=== PATIENT | male | born 1955 | race Caucasian/White ===

== ENCOUNTER 2019-04-24 15:41 | Emergency (ER) | payer OTHER ==
[2019-04-24 16:27] LABS: Absolute Lymphocytes (CBC) 1.9 K/uL (0.7-4.9); Basophils % 0.4 % (0-1.3); Lymphocytes % 14.3 % (15.3-44.8); RBC Red Blood Cell Count 2.64 M/uL (4.33-5.43)
[2019-04-24 16:32] LABS: Protime INR 1.22
[2019-04-24 16:40] LABS: Hematocrit 20.1 % (39.6-49.0)
[2019-04-24 17:00] LABS: Magnesium 2.3 mg/dL (1.8-2.4); Troponin (Emerg Dept Use Only) < 0.02 ng/mL (0.0-0.045)
[2019-04-24 17:03] LABS: ALT/SGPT 17 U/L (12-78); AST/SGOT 26 U/L (15-37); Alkaline Phosphatase 110 U/L (45-117); BUN Blood Urea Nitrogen 20 mg/dL (7-18); Bicarbonate 27 mmol/L (21-32); Bilirubin Direct < 0.1 mg/dL (0-0.2); Bilirubin Total 0.2 mg/dL (0.2-1.0); Glucose Level 125 mg/dL (74-106); NT PRO-BNP 606 pg/mL (<125); Potassium 3.9 mmol/L (3.5-5.1); Protein, Total 7.2 g/dL (6.4-8.2); Sodium Level 134 mmol/L (136-145)
--- NOTE | 2019-04-24 17:03 | RAD REPORT ---
EXAM DESCRIPTION: RAD - Chest Single View - 04/24/2019 4:42 pm CLINICAL HISTORY: Shortness of breath, history of lung cancer COMPARISON: None. TECHNIQUE: AP portable chest image was obtained 1626 hour . FINDINGS: There is complete opacification of the left hemithorax. Left hemidiaphragm elevation is pr esent. Patient gives a lung cancer history but no comparison or further detail available. Patient may be status post pneumonectomy with fluid filling the left pleural cavity. Mass, atelectasis, pleural effusion combination may be present as well. The right hemithorax is clear of mass, infiltrate or edema. Right-sided Port-A-Cath is in place. Heart is obscured by the left hemithorax opacification. Cardiomegaly is not suspected. No vascular e ngorgement on the right side. No right-sided pleural effusion. No pneumothorax. No acute bony abnorma lity seen. Aorta is obscured. IMPRESSION: Complete opacification of the left hemithorax without tracheal shift. This is probably p neumonectomy with pleural fluid filling the left hemithorax. No edema, infiltrate or acute right lung field finding.
[2019-04-24] MEDS ORDERED: ACETAMINOPHEN 325 MG TABLET ONE (21:01)
[2019-04-24] MEDS ORDERED: DIPHENHYDRAMINE 50 MG/ML VIAL ONE (21:01)
[2019-04-24] MEDS ORDERED: NA CHLORIDE 0.9% 250 ML ONE (21:10)
[2019-04-25] MEDS ORDERED: NA CHLORIDE 0.9% 250 ML ONE (00:03)
--- NOTE | 2019-04-25 02:14 | EDPHYS ---
Physician Documentation [facility] Name: Charly Olmedo Age: 63 yrs Sex: Male : 1955 Arrival Date: 04/24/2019 Time: 15:46 Bed 24 Private MD: ED Physician Nicolas Ramos HPI: 04/24 16:18 This 63 yrs old Male presents to ER via Wheelchair with complaints of pm1 Shortness Of Breath. 16:18 The patient has shortness of breath at rest. Onset: The symptoms/episode began/occurred pm1 chronic for multiple months, worse the past three days. Diagnosed with lung cancer 6 weeks ago. Duration: The symptoms are continuous, and are steadily getting worse. The patient's shortness of breath is aggravated by nothing, is alleviated by nothing. Associated signs and symptoms: Pertinent negatives: chest pain, fever. Severity of symptoms: in the emergency department the symptoms are worse. 6 weeks ago presented to ER in [place] and was diagnosed with lung cancer. Patient was also anemic at that time. The patient has not recently seen a physician, has an appointment scheduled, on Thursday with cancer doctors. Historical: - Allergies: 15:50 Corticosteroids (Glucocorticoids); la1 - PMHx: 15:50 lung CA; GERD; la1 - Immunization history:: Adult Immunizations up to date. - Social history:: Smoking status: unknown. - Ebola Screening: : No symptoms or risks identified at this time. ROS: 16:18 Constitutional: Negative for fever, chills, and weight loss, Eyes: Negative for injury, pm1 pain, redness, and discharge, ENT: Negative for injury, pain, and discharge, Neck: Negative for injury, pain, and swelling, Cardiovascular: Negative for chest pain, palpitations, and edema. 16:18 Abdomen/GI: Negative for abdominal pain, nausea, vomiting, diarrhea, and constipation, Back: Negative for injury and pain, : Negative for injury, bleeding, discharge, and swelling, MS/Extremity: Negative for injury and deformity, Skin: Negative for injury, rash, and discoloration, Neuro: Negative for headache, weakness, numbness, tingling, and seizure. 16:18 Respiratory: Positive for shortness of breath, Negative for wheezing. Exam: 16:18 Constitutional: This is a well developed, well nourished patient who is awake, alert, pm1 and in no acute distress. Head/Face: Normocephalic, atraumatic. Neck: Trachea midline, no thyromegaly or masses palpated, and no cervical lymphadenopathy. Supple, full range of motion without nuchal rigidity, or vertebral point tenderness. No Meningismus. Chest/axilla: Normal chest wall appearance and motion. Nontender with no deformity. No lesions are appreciated. Cardiovascular: Regular rate and rhythm with a normal S1 and S2. No gallops, murmurs, or rubs. Normal PMI, no JVD. No pulse deficits. 16:18 Abdomen/GI: Soft, non-tender, with normal bowel sounds. No distension or tympany. No guarding or rebound. No evidence of tenderness throughout. Back: No spinal tenderness. No costovertebral tenderness. Full range of motion. Skin: Warm, dry with normal turgor. Normal color with no rashes, no lesions, and no evidence of cellulitis. MS/ Extremity: Pulses equal, no cyanosis. Neurovascular intact. Full, normal range of motion. 16:18 Respiratory: the patient does not display signs of respiratory distress, Respirations: normal, Breath sounds: decreased breath sounds, are heard in the left posterior upper lobe. 16:18 Neuro: Orientation: is normal, Motor: is normal, moves all fours. Vital Signs: 15:50 BP 115 / 74; Pulse 103; Resp 16; Temp 98.8; Pulse Ox 96% ; Weight 46.72 kg; Height 5 la1 ft. 6 in. (167.64 cm); 17:37 BP 134 / 70; Pulse 94; Resp 28; Pulse Ox 100% on 3 lpm NC; mg2 18:01 BP 114 / 57; Pulse 91; Resp 24; Pulse Ox 99% on 3 lpm NC; mg2 19:07 Pulse 96; Resp 18; Pulse Ox 98% on R/A; mg2 19:07 BP 116 / 78; mg2 20:00 BP 133 / 65; Pulse 91; Resp 18; Temp 98.8; Pulse Ox 100% on R/A; mg2 21:00 BP 133 / 62; Pulse 96; Resp 18; Temp 98.9; Pulse Ox 100% on R/A; mg2 22:08 BP 133 / 62; Pulse 91; Resp 17; Temp 98.8; Pulse Ox 100% on R/A; mg2 22:57 BP 102 / 49; Pulse 89; Resp 18; Temp 98.8; Pulse Ox 100% on 3 lpm NC; mg2 04/25 00:00 BP 140 / 70; Pulse 89; Resp 18; Temp 98.9; Pulse Ox 100% 3 lpm ; ad1 01:28 BP 135 / 72; Pulse 82; Resp 23; Pulse Ox 100% 3 lpm ; ad1 02:08 BP 147 / 71; Pulse 83; Resp 24; Temp 98.3; Pulse Ox 100% 3 lpm ; ad1 04/24 15:50 Body Mass Index 16.62 (46.72 kg, 167.64 cm) la1 MDM: 04/24 15:58 Patient medically screened. pm1 18:30 ED course: Pending arrival of blood products. pm1 22:16 Refusal of service: The patient/guardian displays adequate decision making capability pm1 and despite a detailed discussion of alternatives, benefits, risks, and consequences refuses: CT Scan, Patient does not want CT scan of his chest in the ER. Patient wants to get them on a outpatient basis. He wants to see his cancer physicians for further evaluation and imaging because it [CT scan] should be on their schedule. He has an appointment with them this week. 04/25 02:10 Refusal of service: The patient/guardian displays adequate decision making capability pm1 and despite a detailed discussion of alternatives, benefits, risks, and consequences refuses: Patient would like to leave now. Does not want to wait for repeat labs - H\T\H post blood transfusion. 02:11 Data reviewed: vital signs. Data interpreted: Pulse oximetry: on room air is 100 %. pm1 Interpretation: normal. Counseling: I had a detailed discussion with the patient and/or guardian regarding: the historical points, exam findings, and any diagnostic results supporting the discharge/admit diagnosis, lab results, radiology results, the need for outpatient follow up, for definitive care, Oncology, to return to the emergency department if symptoms worsen or persist or if there are any questions or concerns that arise at home. 04/24 15:58 Order name: Basic Metabolic Panel; Complete Time: 17:06 pm1 04/24 22:16 Interpretation: Normal except: NA 134; GLUC 125; BUN 20. tw4 04/24 15:58 Order name: CBC with Diff; Complete Time: 16:43 pm1 04/24 15:58 Order name: LFT's; Complete Time: 17:06 pm1 04/24 15:58 Order name: Magnesium; Complete Time: 17:06 pm1 04/24 15:58 Order name: NT PRO-BNP; Complete Time: 17:06 pm1 04/24 15:58 Order name: PT-INR; Complete Time: 16:43 pm1 04/24 15:58 Order name: Troponin (emerg Dept Use Only); Complete Time: 17:06 pm1 04/24 22:16 Interpretation: Within normal limits: TROPED < 0.02. tw4 04/24 15:58 Order name: XRAY Chest (1 view); Complete Time: 17:06 pm1 04/24 16:06 Order name: Creatinine for Radiology; Complete Time: 17:06 pm1 04/24 16:43 Order name: TS mg2 04/24 19:24 Order name: ABO/RH no charge; Complete Time: 21:56 EDMS 04/24 20:09 Order name: Packed RBCs (Additional Unit) EDOK 04/24 15:58 Order name: EKG; Complete Time: 15:59 pm1 04/24 15:58 Order name: Cardiac monitoring; Complete Time: 16:18 pm1 04/24 15:58 Order name: EKG - Nurse/Tech; Complete Time: 16:18 pm1 04/24 15:58 Order name: IV Saline Lock; Complete Time: 16:18 pm1 04/24 15:58 Order name: Labs collected and sent; Complete Time: 16:18 pm1 04/24 15:58 Order name: O2 Per Protocol; Complete Time: 16:18 pm1 04/24 15:58 Order name: O2 Sat Monitoring; Complete Time: 16:18 pm1 04/24 16:40 Order name: Transfuse; Complete Time: 21:47 pm1 Administered Medications: 04/24 21:30 Drug: Benadryl 12.5 mg Route: IVP; Site: right forearm; mg2 21:47 Drug: Tylenol 650 mg Route: PO; mg2 Disposition: 04/25/19 02:13 Discharged to Home. Impression: Anemia, unspecified, Shortness of breath. - Condition is Stable. - Discharge Instructions: Anemia, Nonspecific, Blood Transfusion, Adult, Shortness of Breath. - Medication Reconciliation Form, Thank You Letter, Antibiotic Education, Prescription Opioid Use form. - Follow up: Emergency Department; When: As needed; Reason: Worsening of condition. Follow up: Private Physician; When: 2 - 3 days; Reason: Recheck today's complaints, Continuance of care, Re-evaluation by your physician. - Problem is new. - Symptoms have improved. Signatures: Dispatcher [employer] [facility] Reema Saavedra RN RN ad1 Rik Musa RN RN la1 Logan Mckinnon, ELECTROLOG OPERATOR ELECTROLOG OPERATOR pm1 Mehdi Aceves MD MD tw4 Azael Layton, RN RN mg2 Corrections: (The following items were deleted from the chart) 22:29 22:14 Chest For PE Angio+CT.RAD.BRZ ordered. [facility] 04/25 02:14 02:13 04/25/2019 02:13 Discharged to Home. Impression: Anemia, unspecified. Condition pm1 is Stable. Forms are Medication Reconciliation Form, Thank You Letter, Antibiotic Education, Prescription Opioid Use. Follow up: Emergency Department; When: As needed; Reason: Worsening of condition. Follow up: Private Physician; When: 2 - 3 days; Reason: Recheck today's complaints, Continuance of care, Re-evaluation by your physician. Problem is new. Symptoms have improved. pm1 02:33 02:14 04/25/2019 02:13 Discharged to Home. Impression: Anemia, unspecified; Shortness ad1 of breath. Condition is Stable. Forms are Medication Reconciliation Form, Thank You Letter, Antibiotic Education, Prescription Opioid Use. Follow up: Emergency Department; When: As needed; Reason: Worsening of condition. Follow up: Private Physician; When: 2 - 3 days; Reason: Recheck today's complaints, Continuance of care, Re-evaluation by your physician. Problem is new. Symptoms have improved. pm1
--- NOTE | 2019-04-25 02:14 | ER ---
Nurse's Notes [facility] Name: Charly Olmedo Age: 63 yrs Sex: Male : 1955 Arrival Date: 04/24/2019 Time: 15:46 Bed 24 Private MD: Diagnosis: Anemia, unspecified;Shortness of breath Presentation: 04/24 15:51 Presenting complaint: Patient states: I have lung CA and have been getting more SOB la1 over the last two days. I have also had to receive blood transfusions in the past as well. Transition of care: patient was not received from another setting of care. Onset of symptoms was April 24, 2019. Risk Assessment: Do you want to hurt yourself or someone else? Patient reports no desire to harm self or others. Initial Sepsis Screen: Does the patient meet any 2 criteria? No. Patient's initial sepsis screen is negative. Does the patient have a suspected source of infection? No. Patient's initial sepsis screen is negative. Care prior to arrival: None. 15:51 Method Of Arrival: Wheelchair la1 15:51 Acuity: ROMY 2 bb Triage Assessment: 16:32 Respiratory: the patient has mild shortness of breath. mg2 Historical: - Allergies: 15:50 Corticosteroids (Glucocorticoids); la1 - PMHx: 15:50 lung CA; GERD; la1 - Immunization history:: Adult Immunizations up to date. - Social history:: Smoking status: unknown. - Ebola Screening: : No symptoms or risks identified at this time. Screenin:29 Abuse screen: Denies threats or abuse. Denies injuries from another. Nutritional mg2 screening: No deficits noted. Tuberculosis screening: No symptoms or risk factors identified. Fall Risk IV access (20 points). Assessment: 16:30 General: Appears in no apparent distress. comfortable, Behavior is calm, cooperative. mg2 Pain: Complains of pain in chest and abdomen Pain does not radiate. Pain currently is 5 out of 10 on a pain scale. Quality of pain is described as aching, Pain began gradually, Is intermittent. Neuro: Level of Consciousness is awake, alert, obeys commands, Oriented to person, place, time, situation. Cardiovascular: Capillary refill < 3 seconds Rhythm is sinus rhythm. Respiratory: Airway is patent Respiratory effort is even, unlabored, Respiratory pattern is regular, symmetrical, tachypnea. GI: Reports lower abdominal pain, upper abdominal pain. : No signs and/or symptoms were reported regarding the genitourinary system. EENT: No signs and/or symptoms were reported regarding the EENT system. Derm: Skin is intact, is healthy with good turgor, Skin is pink, warm \T\ dry. normal. Musculoskeletal: Circulation, motion, and sensation intact. Capillary refill < 3 seconds. 17:38 Reassessment: patient informed about the plan for blood transfusion. patient agreed. mg2 18:26 Reassessment: i phoned the lab asking about the blood and said irradiated blood is mg2 coming from [facility] and it will take at least 2 hours for the blood to come here. 20:03 Reassessment: patient informed about the waiting time for the blood transfusion. mg2 patient placed in comfortable bed. meal served. consent for blood transfusion signed by the sister. 21:48 Respiratory: Breath sounds are clear. mg2 22:59 Reassessment: patient sleeping on bed. no reactions noted from blood transfusion. mg2 23:13 Reassessment: patient refused for ct chest as per the provider. patient has to receive mg2 2 units of blood in ed. 04/25 00:11 Reassessment: patient informed about the need for repeat H and H 2 hours Post mg2 Transfusion and they might not do it. provider informed. 01:26 Reassessment: Patient appears in no apparent distress at this time. No changes from ad1 previously documented assessment. Patient and/or family updated on plan of care and expected duration. Pain level reassessed. Patient is alert, oriented x 3, equal unlabored respirations, skin warm/dry/pink. no needs at this time.. 02:05 Reassessment: Patient appears in no apparent distress at this time. No changes from ad1 previously documented assessment. Patient and/or family updated on plan of care and expected duration. Pain level reassessed. Patient is alert, oriented x 3, equal unlabored respirations, skin warm/dry/pink. Patient and sister verbalize understanding for post H/H labs and refuse. Sister states they are ready to go home and will follow up on Thursday (04/26/19) with MD/cancer center for blood work. AMA formed signed at this time.. Vital Signs: 04/24 15:50 BP 115 / 74; Pulse 103; Resp 16; Temp 98.8; Pulse Ox 96% ; Weight 46.72 kg; Height 5 la1 ft. 6 in. (167.64 cm); 17:37 BP 134 / 70; Pulse 94; Resp 28; Pulse Ox 100% on 3 lpm NC; mg2 18:01 BP 114 / 57; Pulse 91; Resp 24; Pulse Ox 99% on 3 lpm NC; mg2 19:07 Pulse 96; Resp 18; Pulse Ox 98% on R/A; mg2 19:07 BP 116 / 78; mg2 20:00 BP 133 / 65; Pulse 91; Resp 18; Temp 98.8; Pulse Ox 100% on R/A; mg2 21:00 BP 133 / 62; Pulse 96; Resp 18; Temp 98.9; Pulse Ox 100% on R/A; mg2 22:08 BP 133 / 62; Pulse 91; Resp 17; Temp 98.8; Pulse Ox 100% on R/A; mg2 22:57 BP 102 / 49; Pulse 89; Resp 18; Temp 98.8; Pulse Ox 100% on 3 lpm NC; mg2 04/25 00:00 BP 140 / 70; Pulse 89; Resp 18; Temp 98.9; Pulse Ox 100% 3 lpm ; ad1 01:28 BP 135 / 72; Pulse 82; Resp 23; Pulse Ox 100% 3 lpm ; ad1 02:08 BP 147 / 71; Pulse 83; Resp 24; Temp 98.3; Pulse Ox 100% 3 lpm ; ad1 04/24 15:50 Body Mass Index 16.62 (46.72 kg, 167.64 cm) la1 ED Course: 04/24 15:46 Patient arrived in ED. mr 15:50 Arm band placed on left wrist. la1 15:51 Triage completed. la1 15:57 Logan Mckinnon NP is PHCP. pm1 15:57 Nicolas Ramos MD is Attending Physician. pm1 16:00 Azael Layton RN is Primary Nurse. mg2 16:29 No provider procedures requiring assistance completed. Inserted saline lock: 20 gauge mg2 in right forearm, using aseptic technique. Blood collected. 16:31 Patient has correct armband on for positive identification. mg2 16:45 XRAY Chest (1 view) In Process Unspecified. EDMS 04/25 00:11 Report given to JOSE sexton. mg2 02:33 IV discontinued, intact, bleeding controlled, No redness/swelling at site. ad1 Administered Medications: 04/24 21:30 Drug: Benadryl 12.5 mg Route: IVP; Site: right forearm; mg2 21:47 Drug: Tylenol 650 mg Route: PO; mg2 Medication: 21:47 Blood products: PRBCs X 1 unit given. [id number] See transfusion record. mg2 Outcome: 04/25 02:13 Discharge ordered by MD. pm1 02:32 Discharged to home ad1 02:32 Condition: fair 02:32 Discharge instructions given to patient, family, Instructed on follow up and referral plans. Demonstrated understanding of instructions, follow-up care. 02:33 Patient left the ED. ad1 Signatures: Dispatcher [employer] LMFL Jimena Hilario Brenda RN RN bb Reema Saavedra RN RN ad1 Rik Musa RN RN la1 Logan Mckinnon, STEWARD/[employer]ESS [employer] CLASS STEWARD/[employer]ARDESS [employer] pm1 Azael Layton RN RN mg2 Corrections: (The following items were deleted from the chart) 04/24 20:07 20:03 Reassessment: patient informed about the waiting time for the blood transfusion. mg2 patient placed in comfortable bed. meal served. consent for blood transfusion signed by the patient. mg2 23:06 15:51 Acuity: ROMY 3 la1 andrew
[2019-04-25 02:47] VITALS: O2SAT 100
[2019-04-25 02:55] VITALS: BP 147/71; TEMP 98.3
--- NOTE | 2019-04-25 13:39 | EKG ---
Test Date: 2019-04-24 Test Time: 16:08:30 Extension Work Director: MG MEASUREMENT RESULTS: Intervals: Rate: 100 MN: 120 QRSD: 96 QT: 334 QTc: 430 [place]: P: 7 MN: 120 QRS: 12 T: -5 INTERPRETIVE STATEMENTS: Normal sinus rhythm Possible Inferior infarct, age undetermined Abnormal ECG No previous ECG available for comparison Electronically Signed On 04-25-19 13:38:24 CDT by Bebo Reddy
== END 2019-04-25 02:33 | disposition home or self-care (01) ==
LOC: ER 15:41
PROC: 30233N1 Transfusion of Nonautologous Red Blood Cells into Peripheral Vein, Percutaneous Approach (ICD-10-PCS; principal; 2019-04-25)
DX: C34.90 Malignant neoplasm of unspecified part of unspecified bronchus or lung (principal); D63.8 Anemia in other chronic diseases classified elsewhere; Z88.8 Allergy status to other drugs, medicaments and biological substances
CPT/HCPCS: 93005; 85025; 80048; 36415; 86900; 83735; 86850; 85610; 86901; 80076; 84484; 86922 ×2; 83880; 71045; 36430 ×2; 96374; 99285; P9040 ×2

== ENCOUNTER 2019-05-08 15:15 | Inpatient (IN) | payer OTHER ==
[2019-05-08] MEDS ORDERED: NA CHLORIDE 0.9% 1,000 ML ONE (16:04)
[2019-05-08] MEDS ORDERED: LEVALBUTEROL 1.25 MG/3 ML NEB ONE (16:04)
[2019-05-08 16:38] LABS: Absolute Lymphocytes (CBC) 1.1 K/uL (0.7-4.9); Basophils % 0.5 % (0-1.3); Lymphocytes % 5.8 % (15.3-44.8); MPV 7.4 fL (7.6-11.3); Protime INR 1.19; RBC Red Blood Cell Count 3.59 M/uL (4.33-5.43)
--- NOTE | 2019-05-08 16:43 | RAD REPORT ---
EXAM DESCRIPTION: RAD - Chest Single View - 05/08/2019 4:35 pm CLINICAL HISTORY: Cough and congestion, lung cancer history COMPARISON: April 22 seconds TECHNIQUE: AP portable chest image was obtained 1619 hours . FINDINGS: There is complete opacification of the left hemithorax. Left hemidiaphragm elevation is pr esent. Cancer history was provided. Left opacification may be due to left pneumonectomy. Central mass and pleural effusion cannot be excluded. Correlation is needed with patient history. No CT imaging i s available. Trachea is midline. Right lung field is clear. Right Port-A-Cath is in place with the tip in the righ t atrium. Heart is obscured by the left-sided pleural fluid collection. No pneumothorax. No acute bon y abnormality seen. No acute aortic findings suspected. IMPRESSION: Complete left hemithorax opacification similar to April 24. No acute chest finding.
[2019-05-08 16:53] LABS: ALT/SGPT 27 U/L (12-78); AST/SGOT 44 U/L (15-37); Albumin 2.1 g/dL (3.4-5.0); Alkaline Phosphatase 124 U/L (45-117); BUN Blood Urea Nitrogen 22 mg/dL (7-18); Bicarbonate 29 mmol/L (21-32); Bilirubin Direct 0.1 mg/dL (0-0.2); Bilirubin Total 0.4 mg/dL (0.2-1.0); Glucose Level 109 mg/dL (74-106); Magnesium 2.1 mg/dL (1.8-2.4); NT PRO-BNP 1314 pg/mL (<125); Protein, Total 7.9 g/dL (6.4-8.2); Sodium Level 135 mmol/L (136-145); Troponin (Emerg Dept Use Only) 0.04 ng/mL (0.0-0.045)
[2019-05-08 17:06] LABS: Arterial Blood Carboxyhemoglob 1.4 % (0-1.5); Blood Gas Oxyhemoglobin 87.8 % (94-97)
[2019-05-08 17:15] LABS: Blood Morphology Comment NOTED (NOT SEEN); Platelet Estimate INCR
[2019-05-08] MEDS ORDERED: ASPIRIN 81 MG CHEWABLE TABLET ONE (17:17)
[2019-05-08] MEDS ORDERED: HYDROCODONE/APAP 10/325 TAB ONE (17:17)
[2019-05-08] MEDS ORDERED: Levofloxacin 750mg IV 750 MG/150 ML BAG IV ONE (17:17)
--- NOTE | 2019-05-08 17:19 | ER ---
Nurse's Notes [facility] Name: Charly Olmedo Age: 63 yrs Sex: Male : 1955 Arrival Date: 05/08/2019 Time: 15:16 Bed 2 Private MD: Diagnosis: Respiratory failure, unspecified with hypoxia Presentation: 05/08 15:43 Presenting complaint: states: "He has lung cancer, he has this coughing and it aj1 gags him and that gives him a panic attack, and during that time he feels like he can't breathe. We called the after hours number for Dr. Guido and she said he needed to come to the ER for anxiety medicine because its a controlled substance" Patient reports increased SOB, cough, reports intermittent fever. Transition of care: patient was not received from another setting of care. Onset of symptoms was 2018. Risk Assessment: Do you want to hurt yourself or someone else? Patient reports no desire to harm self or others. Initial Sepsis Screen: Does the patient meet any 2 criteria? RR > 20 per min. HR > 90 bpm. Yes Does the patient have a suspected source of infection? Yes: Productive cough/pneumonia If YES to both, name of provider notified: Darek PORTER. Care prior to arrival: None. 15:43 Method Of Arrival: Ambulatory aj1 15:43 Acuity: ROMY 2 aj1 Triage Assessment: 15:56 General: Appears uncomfortable, unkempt, emaciated, Behavior is cooperative, anxious. aj1 Neuro: Level of Consciousness is awake, alert, obeys commands. Cardiovascular: Patient's skin is warm and dry. Respiratory: Airway is patent Respiratory effort is even, labored, Respiratory pattern is regular, symmetrical, tachypnea. 16:33 Pain: Complains of pain in right lower quadrant and left lower quadrant. GI: Abdomen is ae4 flat, Bowel sounds present X 4 quads. Abd is soft and non tender. Derm: Skin is pale, Osman toned. Historical: - Allergies: 15:56 Corticosteroids (Glucocorticoids); aj1 - Home Meds: 15:56 Hydrocodone-Acetaminophen Oral [Active]; Fentanyl Patch Topical [Active]; Vitamin B-12 aj1 Oral [Active]; Iron CR Oral [Active]; - PMHx: 15:56 GERD; Lung CA; current chemo; aj1 - Immunization history:: Flu vaccine is not up to date. - Social history:: Smoking status: Patient/guardian denies using tobacco. - Ebola Screening: : Patient denies travel to an Ebola-affected area in the 21 days before illness onset. Screenin:31 Abuse screen: Denies threats or abuse. Nutritional screening: No deficits noted. ae4 Tuberculosis screening: No symptoms or risk factors identified. Fall Risk No fall in past 12 months (0 pts). No secondary diagnosis (0 pts). IV access (20 points). Ambulatory Aid- Crutches/Cane/Walker (15 pts). Gait- Weak (10 pts.). Mental Status- Oriented to own ability (0 pts). Assessment: 16:38 General: Appears distressed, uncomfortable, slender, malnourished, Behavior is ae4 cooperative, anxious, restless. Pain: Complains of pain in right lower quadrant and left lower quadrant. Neuro: Level of Consciousness is awake, alert, obeys commands, Oriented to person, place, time, situation, Appropriate for age. Cardiovascular: Heart tones S1 S2 present Skin is cool and dry. Rhythm is regular. Respiratory: Airway is patent Respiratory effort is even, labored, with nasal flaring, shallow, Breath sounds are diminished bilaterally. GI: Abdomen is flat, Bowel sounds present X 4 quads. Abd is soft and non tender. : No signs and/or symptoms were reported regarding the genitourinary system. EENT: No signs and/or symptoms were reported regarding the EENT system. Derm: Skin is pale, Osman tone. Musculoskeletal: No signs and/or symptoms reported regarding the musculoskeletal system. 16:40 Reassessment: Patient is anxious, sister at bedside states "he is having a full blown ae4 panic attack". Provider notified, new orders for bipap, respiratory paged and at bedside. Patient refused bipap. General: Behavior is cooperative, Patient appears calmer and states he feels better.. 17:00 Reassessment: Patient and/or family updated on plan of care and expected duration. Pain ae4 level reassessed. 19:23 General: Appears uncomfortable, cachectic, Behavior is calm, cooperative. Neuro: Level bb of Consciousness is awake, alert, obeys commands, Oriented to person, place, time, situation. Cardiovascular: Heart tones S1 S2 present Rhythm is sinus tachycardia. Respiratory: Airway is patent Respiratory effort is shallow, Respiratory pattern is tachypnea. GI: No signs and/or symptoms were reported involving the gastrointestinal system. Derm: Skin is dry, Skin temperature is warm. Musculoskeletal: Circulation, motion, and sensation intact. Vital Signs: 15:46 BP 165 / 86; Pulse 110; Resp 36; Temp 97.4; Pulse Ox 87% on R/A; Weight 47.17 kg (R); aj1 16:33 BP 166 / 100; Pulse 109; Resp 41; Pulse Ox 91% on 3 lpm NC; ae4 17:31 BP 168 / 93; Pulse 112; Resp 31; Pulse Ox 96% on 3 lpm NC; ae4 18:22 BP 133 / 79; Pulse 109; Resp 29; Pulse Ox 99% on 3 lpm NC; ae4 19:22 BP 125 / 76; Pulse 111; Resp 30 S; Temp 98.3(O); Pulse Ox 99% on 3 lpm NC; bb ED Course: 15:16 Patient arrived in ED. as 15:46 Triage completed. aj1 15:49 Darek Marin PA is PHCP. cp 15:49 Mesfin Eldridge MD is Attending Physician. cp 15:56 Arm band placed on Patient Patient triaged in ER bed 2. aj1 15:57 Randall Bower, JOSE is Primary Nurse. ae4 15:57 youth nutritional monitor on. Pulse ox on. NIBP on. aj1 16:00 Placed in gown. Bed in low position. Call light in reach. Side rails up X2. Adult w/ ae4 patient. Warm blanket given. 16:04 Inserted saline lock: 20 gauge in right antecubital area, using aseptic technique. ae4 Blood collected. 16:35 XRAY Chest (1 view) In Process Unspecified. EDMS 17:17 Rocael Shafer MD is Hospitalizing Provider. cp 17:36 XRAY KUB In Process Unspecified. EDMS 19:08 No provider procedures requiring assistance completed. Patient admitted, IV remains in ak1 place. Administered Medications: 16:05 Drug: Xopenex (3) 1.25 mg Route: Inhalation; ae4 16:17 Drug: NS 0.9% 1000 ml Route: IV; Rate: 1000 ml/hr; Site: right antecubital; ae4 18:10 Follow up: IV Status: Completed infusion ae4 19:04 Follow up: IV Intake: 1000ml ae4 17:19 Drug: Hydrocodone-Acetaminophen (10 mg-500 mg) 1 tabs Route: PO; ae4 18:11 Follow up: Response: Pain is decreased ae4 18:56 Follow up: Response: RASS: Alert and Calm (0) ae4 17:27 Drug: LevaQUIN 750 mg Volume: 150 ml; Route: IVPB; Infused Over: 90 mins; Site: right ae4 antecubital; 18:56 Follow up: IV Status: Completed infusion ae4 18:56 Follow up: IV Intake: 100ml ae4 17:27 Not Given (Patient Refused; Patient states he is unable to chew pills.): Aspirin ae4 Chewable Tablet 324 mg PO once; 81 mg tablets x 4 Intake: 18:56 IV: 100ml; Total: 100ml. ae4 19:04 IV: 1000ml; Total: 1100ml. ae4 Outcome: 17:18 Decision to Hospitalize by Provider. cp 19:09 Condition: stable ak1 19:22 Instructed on the need for admit. bb 19:46 Admitted to Med/surg accompanied by tech, via stretcher, room 413, with oxygen, with ak1 chart, Report called to Jamie GARCIA 20:01 Patient left the ED. ak1 Signatures: Dispatcher [employer] EDMS Romy Mata RN RN aj1 Jennifer Clements Brenda, RN RN bb Karly Sheehan RN RN ak1 Darek Marin PA PA Randall Calderon RN RN ae4 Corrections: (The following items were deleted from the chart) 19:04 15:43 Initial Sepsis Screen: Does the patient meet any 2 criteria? RR > 20 per min. HR ae4 > 90 bpm. Yes Does the patient have a suspected source of infection? Yes: Productive cough/pneumonia aj1
--- NOTE | 2019-05-08 17:19 | EDPHYS ---
Physician Documentation [facility] Name: Charly Olmedo Age: 63 yrs Sex: Male : 1955 Arrival Date: 05/08/2019 Time: 15:16 Bed 2 Private MD: ED Physician Mesfin Eldridge HPI: 05/08 16:00 This 63 yrs old Male presents to ER via Ambulatory with complaints of cp shortness of breath. 16:00 The patient has shortness of breath at rest. cp 16:00 Onset: The symptoms/episode began/occurred gradually. Duration: The symptoms are cp continuous, and are steadily getting worse. 16:00 Associated signs and symptoms: Pertinent positives: productive cough, fever, Pertinent cp negatives: chest pain, diaphoresis, hemoptysis, vomiting. Severity of symptoms: in the emergency department the symptoms are unchanged despite home interventions. Historical: - Allergies: 15:56 Corticosteroids (Glucocorticoids); aj1 - Home Meds: 15:56 Hydrocodone-Acetaminophen Oral [Active]; Fentanyl Patch Topical [Active]; Vitamin B-12 aj1 Oral [Active]; Iron CR Oral [Active]; - PMHx: 15:56 GERD; Lung CA; current chemo; aj1 - Immunization history:: Flu vaccine is not up to date. - Social history:: Smoking status: Patient/guardian denies using tobacco. - Ebola Screening: : Patient denies travel to an Ebola-affected area in the 21 days before illness onset. ROS: 16:05 Constitutional: Negative for body aches, fever, poor PO intake. cp 16:05 Eyes: Negative for injury, pain, redness, and discharge. cp 16:05 Cardiovascular: Negative for chest pain, edema, palpitations. cp 16:05 ENT: Negative for drainage from ear(s), ear pain, sore throat, difficulty swallowing, cp difficulty handling secretions. 16:05 Respiratory: Positive for cough, shortness of breath, at rest. Negative for wheezing. 16:05 Abdomen/GI: Negative for abdominal pain, nausea, vomiting, and diarrhea, black/tarry stool. 16:05 : Negative for urinary symptoms. 16:05 Neuro: Negative for altered mental status, dizziness, headache, loss of consciousness, weakness. Exam: 16:10 Constitutional: The patient appears in no acute distress, alert, awake, cp non-diaphoretic, non-toxic, well developed, well nourished, uncomfortable. 16:10 Head/Face: Normocephalic, atraumatic. cp 16:10 Eyes: Periorbital structures: appear normal, Conjunctiva: normal, no exudate, no injection, Sclera: no appreciated abnormality, Lids and lashes: appear normal, bilaterally. 16:10 ENT: External ear(s): are unremarkable, Ear canal(s): are normal, clear, TM's: dullness, bilaterally, Nose: is normal, Mouth: is normal, Posterior pharynx: is normal, airway is patent, no erythema, no exudate. 16:10 Neck: ROM/movement: is normal, is supple, without pain, no range of motions limitations, no nuchal rigidity. 16:10 Chest/axilla: Inspection: normal, Palpation: is normal, no crepitus, no tenderness. 16:10 Cardiovascular: Rate: tachycardic, Rhythm: regular, Edema: is not appreciated, JVD: is not appreciated. 16:10 Respiratory: mild respiratory distress is noted, Respirations: labored breathing, that is mild, intercostal retractions, are absent, shallow respirations, that is mild, Breath sounds: decreased breath sounds, that are severe, are heard in the right lung, stridor, is not appreciated. 16:10 Abdomen/GI: Inspection: abdomen appears normal, Bowel sounds: active, all quadrants, Palpation: abdomen is soft and non-tender, in all quadrants. 16:10 Back: ROM is normal. 16:10 Skin: no rash present. 16:10 Neuro: Orientation: to person, place \T\ time. Mentation: is normal, Cerebellar function: is grossly normal, Motor: moves all fours, strength is normal. 16:45 ECG was reviewed by the Attending Physician. cp Vital Signs: 15:46 BP 165 / 86; Pulse 110; Resp 36; Temp 97.4; Pulse Ox 87% on R/A; Weight 47.17 kg (R); aj1 16:33 BP 166 / 100; Pulse 109; Resp 41; Pulse Ox 91% on 3 lpm NC; ae4 17:31 BP 168 / 93; Pulse 112; Resp 31; Pulse Ox 96% on 3 lpm NC; ae4 18:22 BP 133 / 79; Pulse 109; Resp 29; Pulse Ox 99% on 3 lpm NC; ae4 19:22 BP 125 / 76; Pulse 111; Resp 30 S; Temp 98.3(O); Pulse Ox 99% on 3 lpm NC; bb MDM: 16:04 Patient medically screened. cp 16:30 Differential diagnosis: Bronchitis CHF exacerbation, Chronic Obstructive Pulmonary cp Disease Myocardial Infarction pneumonia, Sepsis. 17:15 Data reviewed: vital signs, nurses notes, lab test result(s), EKG, radiologic studies, cp plain films. Test interpretation: by ED physician or midlevel provider: ECG, plain radiologic studies. Physician consultation: Rocael Shafer MD was called at 17:16, was contacted at 17:16, regarding admission, to the telemetry unit. patient's condition. 17:15 Antibiotic administration: Levaquin given. cp 17:15 Counseling: I had a detailed discussion with the patient and/or guardian regarding: the cp historical points, exam findings, and any diagnostic results supporting the discharge/admit diagnosis, lab results, radiology results. Response to treatment: the patient's symptoms have mildly improved after treatment, and as a result, I will admit patient. 05/08 15:58 Order name: Basic Metabolic Panel; Complete Time: 17:02 cp 05/08 17:02 Interpretation: Normal except: NA 135; CL 97; GLUC 109; BUN 22. cp 05/08 15:58 Order name: CBC with Diff; Complete Time: 18:22 cp 05/08 16:45 Interpretation: Reviewed. 05/08 15:58 Order name: LFT's; Complete Time: 17:02 cp 05/08 18:23 Interpretation: Normal except: AST 44; ALK 124; ALB 2.1; GLOB 5.8; A/G 0.4. cp 05/08 15:58 Order name: Magnesium; Complete Time: 17:02 cp 05/08 15:58 Order name: NT PRO-BNP; Complete Time: 17:02 cp 05/08 15:58 Order name: PT-INR; Complete Time: 16:44 cp 05/08 16:44 Interpretation: Abnormal: PT 14.0. cp 05/08 15:58 Order name: Troponin (emerg Dept Use Only); Complete Time: 17:02 cp 05/08 15:58 Order name: Procalcitonin; Complete Time: 18:22 cp 05/08 18:23 Interpretation: Reviewed. cp 05/08 15:58 Order name: Lactate; Complete Time: 17:02 cp 05/08 15:58 Order name: Influenza Screen (a \T\ B); Complete Time: 18:22 cp 05/08 18:23 Interpretation: Reviewed. cp 05/08 15:58 Order name: Blood Culture Adult (2) cp 05/08 15:59 Order name: UA MICROSCOPIC cp 05/08 16:41 Order name: Manual Differential; Complete Time: 18:22 EDMS 05/08 18:22 Interpretation: Normal except: SEGS 86; LYM 8. cp 05/08 16:57 Order name: ABG; Complete Time: 18:22 cp 05/08 15:58 Order name: XRAY Chest (1 view); Complete Time: 17:02 cp 05/08 15:58 Order name: EKG; Complete Time: 15:59 cp 05/08 15:58 Order name: Cardiac monitoring; Complete Time: 16:32 cp 05/08 15:58 Order name: EKG - Nurse/Tech; Complete Time: 17:27 cp 05/08 15:58 Order name: IV Saline Lock; Complete Time: 16:32 cp 05/08 15:58 Order name: Labs collected and sent; Complete Time: 16:32 cp 05/08 15:58 Order name: O2 Per Protocol; Complete Time: 16:32 cp 05/08 15:58 Order name: O2 Sat Monitoring; Complete Time: 16:32 cp 05/08 16:39 Order name: XRAY KUB; Complete Time: 18:22 cp EC:45 Rate is 109 beats/min. Rhythm is regular. NC interval is normal. QRS interval is cp normal. QT interval is normal. Interpreted by me. Reviewed by me. Administered Medications: 16:05 Drug: Xopenex (3) 1.25 mg Route: Inhalation; ae4 16:17 Drug: NS 0.9% 1000 ml Route: IV; Rate: 1000 ml/hr; Site: right antecubital; ae4 18:10 Follow up: IV Status: Completed infusion ae4 19:04 Follow up: IV Intake: 1000ml ae4 17:19 Drug: Hydrocodone-Acetaminophen (10 mg-500 mg) 1 tabs Route: PO; ae4 18:11 Follow up: Response: Pain is decreased ae4 18:56 Follow up: Response: RASS: Alert and Calm (0) ae4 17:27 Drug: LevaQUIN 750 mg Volume: 150 ml; Route: IVPB; Infused Over: 90 mins; Site: right ae4 antecubital; 18:56 Follow up: IV Status: Completed infusion ae4 18:56 Follow up: IV Intake: 100ml ae4 17:27 Not Given (Patient Refused; Patient states he is unable to chew pills.): Aspirin ae4 Chewable Tablet 324 mg PO once; 81 mg tablets x 4 Disposition: 05/08/19 17:18 Hospitalization ordered by Rocael Shafer for Inpatient Admission. Preliminary diagnosis is Respiratory failure, unspecified with hypoxia. - Bed requested for Telemetry/MedSurg (Inpatient). - Status is Inpatient Admission. ak1 - Condition is Stable. - Problem is new. - Symptoms have improved. UTI on Admission? No Addendum: 05/12/2019 20:23 Co-signature as Attending Physician, Mesfin Eldridge MD. r n Signatures: Dispatcher [employer] EDMS Romy Mata, RN RN aj1 Mesfin Eldridge MD MD rn Krenek, Amber, RN RN ak1 Darek Marin PA PA cp Renee Phoenix Randall Bower RN RN ae4 Corrections: (The following items were deleted from the chart) 05/08 18:44 17:18 Hospitalization Ordered by Rocael Shafer MD for Inpatient Admission. Preliminary gm diagnosis is Respiratory failure, unspecified with hypoxia. Bed requested for Telemetry/MedSurg (Inpatient). Status is Inpatient Admission. Condition is Stable. Problem is new. Symptoms have improved. UTI on Admission? No. cp 20:01 18:44 05/08/2019 17:18 Hospitalization Ordered by Rocael Shafer MD for Inpatient ak1 Admission. Preliminary diagnosis is Respiratory failure, unspecified with hypoxia. Bed requested for Telemetry/MedSurg (Inpatient). Status is Inpatient Admission. Condition is Stable. Problem is new. Symptoms have improved. UTI on Admission? No. gm
[2019-05-08 17:27] LABS: Hypochromasia 1+
--- NOTE | 2019-05-08 17:45 | RAD REPORT ---
EXAM DESCRIPTION: RAD - Abdomen 1 View (KUB) - 05/08/2019 5:36 pm CLINICAL HISTORY: left flank pain COMPARISON: Chest Single View dated 05/08/2019 FINDINGS: Bowel gas pattern is non-specific. No obstruction, free air or pneumatosis. No suspicious calcifications. No significant bony findings Lung base findings are detailed on separate chest report IMPRESSION: Negative KUB examination for acute or significant finding.
[2019-05-08] MEDS ORDERED: ONDANSETRON 4 MG/2 ML VIAL IV PRN (20:13)
--- NOTE | 2019-05-08 20:20 | P.HP ---
Certification for Inpatient Patient admitted to: Inpatient With expected LOS: >2 Midnights Patient will require the following post-hospital care: None Practitioner: I am a practitioner with admitting privileges, knowledge of patient current condition, hospital course, and medical plan of care. Services: Services provided to patient in accordance with Admission requirements found in Title 42 Section 412.3 of the Code of Federal Regulations Patient History Date of Service: 05/08/19 Reason for admission: SOB History of Present Illness: 63 yo male with past medical history of Lung Ca left side followed by Dr Guido came to ER with SOB and panic attack which started today and was brought to ER . Associated with cough with mucoid expectoration . Denies any Chest pain .SOB worsen with minimal exertion . He started having panic attack and called Dr. Guido Advised him to come to the ER. Denies any fever no chills No nausea vomiting or diarrhea Patient is a poor historian hence most of the history obtained from the chart review and also talking to the family member who is at the bedside. At the time of interview patient is still mildly distressed on oxygen. Denies any chest pain. Afebrile Allergies steroids Adverse Reaction (Uncoded 05/08/19 20:26) Anaphylaxis Home medications list reviewed: Yes Home Medications: Hydrocodone/Acetaminophen [Hydrocodone-Acetamin 5-325 mg] 2 tab PO Q4HR PRN 01/19 Ondansetron [Zofran (Odt)*] 1 tab PO Q6HR 05/08/19 fentaNYL [Fentanyl] 25 mcg TOP DIRECTED 05/08/19 - Past Medical/Surgical History Has patient received pneumonia vaccine in the past: No Diabetic: No -: lung ca -: GERD -: Anxiety -: Port Placement - Family History Family History: Reviewed- Non-Contributory - Social History Smoking Status: Former smoker Place of Residence: Home Review of Systems 10-point ROS is otherwise unremarkable General: Weakness, Malaise Respiratory: Cough, Shortness of Breath, SOB with Excertion, Other (Denies any hemodialysis) Cardiovascular: Orthopnea Physical Examination - Vital Signs Temperature: 98.6 F Blood Pressure: 165/86 Pulse: 86 Pulse Ox (%): 94 - Physical Exam General: Alert, Cachectic, Mild distress HEENT: Atraumatic, Normocephalic Neck: Supple Respiratory: Diminished, Crackles/rales, Other (Decreased air entry to the left side of the lung, crackles + , with occasional wheezes) Cardiovascular: No edema, Normal S1 S2, No murmurs Capillary refill: <2 Seconds Gastrointestinal: Soft and benign, Non-distended Musculoskeletal: No swelling, No erythema, No tenderness Integumentary: No rashes Neurological: Normal speech, Normal strength at 5/5 x4 extr, Sensation intact Lymphatics: No axilla or inguinal lymphadenopathy Urinary: Other (No bladder distention) External genitalia: Deferred Rectal: Deferred - Studies Laboratory Data (last 24 hrs) 05/08/19 16:15: PT 14.0 H, INR 1.19 05/08/19 16:15: WBC 18.6 H D, Hgb 9.3 L D, Hct 29.0 L D, Plt Count 698 H 05/08/19 16:15: Sodium 135 L, Potassium 4.0, BUN 22 H, Creatinine 0.72, Glucose 109 H, Magnesium 2.1, Total Bilirubin 0.4, AST 44 H, ALT 27, Alkaline Phosphatase 124 H Microbiology Data (last 24 hrs): 05/08/19 16:20 Nasopharnyx Influenza Type A Antigen Screen - Final 05/08/19 16:20 Nasopharnyx Influenza Type B Antigen Screen - Final Assessment and Plan - Problems (Diagnosis) (1) Acute and chronic respiratory failure with hypoxia Current Visit: Yes Status: Acute Plan: Started on oxygen supplementation monitor under telemetry Start on bronchodilators The patient is allergic to steroids (2) Pneumonia involving left lung Current Visit: Yes Status: Acute Plan: Start on IV antibiotics Will add Mucinex Continue bronchodilator Repeat x-ray in the a.m. Qualifiers: Pneumonia type: due to unspecified organism (3) Lung cancer Current Visit: Yes Status: Chronic Plan: History of lung cancer X-ray shows opacification of the left lung ? mucous plug versus lung cancer Followed by Dr. Guido May consult oncology if the patient stays longer (4) Leukocytosis Current Visit: Yes Status: Acute Plan: Monitor CBC daily Blood cultures also get sputum culture On antibiotics Anxiety was started on antianxiety medications Monitor closely Hyponatremia will monitor sodium levels Start on moderate hydration Elevated Liver enzymes Will repeat in a.m. Anemia of chronic disease Monitor CBC daily Mild protein calorie malnutrition Start on [facility] Discharge Plan: Home Plan to discharge in: 72 Hours - Advance Directives Does patient have a Living Will: No Does patient have a Durable POA for Healthcare: No Physician Review: Patient Assessed, Agree with Above Assessment and Plan
[2019-05-08] MEDS ORDERED: GUAIFENESIN/CODEINE 5ML UCUP PO PRN (20:35)
[2019-05-08] MEDS ORDERED: ACETAMINOPHEN 325 MG TABLET PO PRN (20:38)
[2019-05-08 20:58] VITALS: BMI 17.2
[2019-05-08] MEDS: HYDROCODONE/APAP 10/325 TAB PO PRN (21:22)
[2019-05-08] MEDS: GUAIFENESIN 600 MG SA TAB PO SCH (21:22)
[2019-05-08] MEDS: ALPRAZOLAM 0.25 MG TABLET PO PRN (21:22)
[2019-05-09] MEDS: LEVALBUTEROL 1.25 MG/3 ML NEB NEB SCH ×4 (02:10→20:30)
[2019-05-09 06:04] LABS: Absolute Lymphocytes (CBC) 1.5 K/uL (0.7-4.9); Basophils % 0.3 % (0-1.3); Lymphocytes % 6.8 % (15.3-44.8); MPV 7.1 fL (7.6-11.3); RBC Red Blood Cell Count 2.99 M/uL (4.33-5.43)
[2019-05-09 06:20] LABS: ALT/SGPT 18 U/L (12-78); AST/SGOT 30 U/L (15-37); Albumin 1.6 g/dL (3.4-5.0); Alkaline Phosphatase 101 U/L (45-117); BUN Blood Urea Nitrogen 15 mg/dL (7-18); Bicarbonate 29 mmol/L (21-32); Bilirubin Total 0.3 mg/dL (0.2-1.0); Glucose Level 93 mg/dL (74-106); Potassium 4.2 mmol/L (3.5-5.1); Protein, Total 6.2 g/dL (6.4-8.2); Sodium Level 137 mmol/L (136-145)
[2019-05-09] MEDS: ALPRAZOLAM 0.25 MG TABLET PO PRN (06:37)
[2019-05-09] MEDS: HYDROCODONE/APAP 10/325 TAB PO PRN ×3 (06:37→18:12)
[2019-05-09] MEDS: PANTOPRAZOLE 40MG TABLET PO SCH (06:43)
[2019-05-09 07:52] LABS: Anisocytosis 2+; Blood Morphology Comment NOTED (NOT SEEN); Platelet Estimate INCR; Urine White Blood Cell Casts OK
[2019-05-09 07:53] LABS: Poikilocytosis 1+
--- NOTE | 2019-05-09 08:42 | RAD REPORT ---
EXAM DESCRIPTION: RAD - Chest Pa And Lat (2 Views) - 05/09/2019 6:32 am CLINICAL HISTORY: SOB COMPARISON: Portable chest May 08 TECHNIQUE: PA and lateral views of the chest were obtained. FINDINGS: The lungs are normal volume. Complete left hemithorax opacification remains. Left hemidiap hragm elevation remains. Right-sided Port-A-Cath is in place. Right lung field shows no consolidation or mass. Interstitial pattern is fractionally increased from comparison imaging. Interval change is minimal but could reflect early interstitial edema or infiltra te. The trachea remains midline. There is truncation of the left mainstem bronchus. Left pneumonectom y is assumed but no confirmed history available. Heart is mostly obscured due to the left hemithorax opacification. Cardiomegaly is not suspected. No engorgement of the upper vasculature on the right. No right-sided pleural effusion or pneumothorax. N o acute bony finding noted. No aortic abnormality. IMPRESSION: Interstitial markings in the right lung field are fractionally increased from comparison . Correlation is needed with any edema or infiltrate exam findings. Remainder the examination, as detailed above, is stable from prior imaging.
[2019-05-09] MEDS: ENOXAPARIN 40 MG/0.4 ML SQ SCH (08:51)
[2019-05-09] MEDS: GUAIFENESIN 600 MG SA TAB PO SCH ×2 (08:52→22:22)
[2019-05-09] MEDS: CEFTRIAXONE/SWI 1gm 1 GM/10 ML SYR IV SCH (08:52)
[2019-05-09] MEDS ORDERED: CEFTRIAXONE 1 GM/NS 50 ML 1 GM/50 ML BAG IV SCH (09:00)
[2019-05-09] MEDS: AZITHROMYCIN IV 500 MG in NA CHLORIDE 0.9% 250 ML IVPB SCH (09:28)
--- NOTE | 2019-05-09 09:46 | EKG ---
Test Date: 2019-05-08 Test Time: 16:41:33 Virtual Reality Specialist: JUAN MEASUREMENT RESULTS: Intervals: Rate: 109 NE: 120 QRSD: 90 QT: 334 QTc: 449 [place]: P: 74 NE: 120 QRS: 44 T: 77 INTERPRETIVE STATEMENTS: Sinus tachycardia Abnormal ECG Compared to ECG 04/24/2019 16:08:30 Sinus rhythm no longer present Myocardial infarct finding no longer present Electronically Signed On 05-09-19 09:45:54 CDT by Bebo Reddy
--- NOTE | 2019-05-09 16:46 | P.PN ---
Subjective Date of Service: 05/09/19 Chief Complaint: SOB Subjective: No new changes Patient seen and examined at bedside. Chart reviewed and case discussed with nursing staff. Case discussed with Dr. Guido No acute events overnight. Continues to be on oxygen. Reports slightly improved breathing. Feeling better with ativan and oxygen. Review of Systems 10-point ROS is otherwise unremarkable Physical Examination - Vital Signs Temperature: 98.3 F Blood Pressure: 104/59 Pulse: 88 Respirations: 26 Pulse Ox (%): 95 - Physical Exam General: Alert, In no apparent distress, Oriented x3, Cachectic, Other (Frail) HEENT: Atraumatic, PERRLA, EOMI Neck: Supple, JVD not distended Respiratory: Diminished, Expiratory wheezes Cardiovascular: Regular rate/rhythm, Normal S1 S2 Gastrointestinal: Normal bowel sounds, No tenderness Musculoskeletal: No tenderness Integumentary: No rashes Neurological: Normal speech, Normal tone, Normal affect Lymphatics: No axilla or inguinal lymphadenopathy - Studies Laboratory Data (last 24 hrs) 05/08/19 16:15: PT 14.0 H, INR 1.19 05/08/19 16:15: WBC 18.6 H D, Hgb 9.3 L D, Hct 29.0 L D, Plt Count 698 H 05/08/19 16:15: Sodium 135 L, Potassium 4.0, BUN 22 H, Creatinine 0.72, Glucose 109 H, Magnesium 2.1, Total Bilirubin 0.4, AST 44 H, ALT 27, Alkaline Phosphatase 124 H Microbiology Data (last 24 hrs): 05/08/19 16:20 Nasopharnyx Influenza Type A Antigen Screen - Final 05/08/19 16:20 Nasopharnyx Influenza Type B Antigen Screen - Final Assessment And Plan - Current Problems (Diagnosis) (1) Acute and chronic respiratory failure with hypoxia Current Visit: Yes Status: Acute Plan: -Continue on oxygen supplementation -monitor under telemetry -continue on bronchodilators -The patient cannot tolerate steroids due to interactions with other medications (2) Leukocytosis Current Visit: Yes Status: Acute Plan: -Monitor CBC daily -Blood cultures and sputum culture -Continue antibiotics (3) Pneumonia involving left lung Current Visit: Yes Status: Acute Plan: -Continue IV antibiotics -continue Mucinex and bronchodilators Qualifiers: Pneumonia type: due to unspecified organism (4) Lung cancer Current Visit: Yes Status: Chronic Plan: Patient with a history of stage IV lung cancer, with metastasis. -He follows up with -he will continue his follow up as an outpatient with them. Case was discussed with oncologist (5) Anxiety Current Visit: Yes Status: Acute Plan: Anxiety medication dosage increased for someone with a history of active cancer. Continue to monitor closely (6) Hyponatremia Current Visit: Yes Status: Acute Plan: Improving -continue to monitor his sodium and IV hydration at this time (7) Malnutrition Current Visit: No Status: Chronic Qualifiers: Malnutrition type: protein-calorie malnutrition (8) Anemia Current Visit: No Status: Chronic Plan: Continue to monitor H&H. Transfuse to keep above 7 - Plan DVT prophylaxis: Lovenox GI prophylaxis: Protonix Diet: Regular Disposition: Pending symptomatic improvement. Anticipate discharge home in the next 24 hr with continued outpatient oncology follow up. Will attempt to see if patient will qualify for home oxygen due to his cancer. Oxygen at home will help patient at home, due to his underlying lung cancer. Discharge Plan: Home Plan to discharge in: 24 Hours Physician Review: Patient Assessed, Agree with Above Assessment and Plan
[2019-05-09] MEDS: ENSURE ENLIVE 237 ML CAN PO SCH (22:22)
[2019-05-10] MEDS: LEVALBUTEROL 1.25 MG/3 ML NEB NEB SCH ×4 (02:05→19:15)
[2019-05-10] MEDS: HYDROCODONE/APAP 10/325 TAB PO PRN ×5 (03:19→22:52)
[2019-05-10 06:07] LABS: Absolute Lymphocytes (CBC) 1.5 K/uL (0.7-4.9); Basophils % 0.6 % (0-1.3); Hematocrit 24.7 % (39.6-49.0); Lymphocytes % 8.4 % (15.3-44.8); MPV 7.6 fL (7.6-11.3); RBC Red Blood Cell Count 3.02 M/uL (4.33-5.43)
[2019-05-10 06:28] LABS: ALT/SGPT 15 U/L (12-78); AST/SGOT 32 U/L (15-37); Albumin 1.6 g/dL (3.4-5.0); Alkaline Phosphatase 100 U/L (45-117); BUN Blood Urea Nitrogen 16 mg/dL (7-18); Bicarbonate 26 mmol/L (21-32); Bilirubin Total 0.3 mg/dL (0.2-1.0); Glucose Level 95 mg/dL (74-106); Protein, Total 6.3 g/dL (6.4-8.2); Sodium Level 136 mmol/L (136-145)
[2019-05-10] MEDS: AZITHROMYCIN IV 500 MG in NA CHLORIDE 0.9% 250 ML IVPB SCH (08:15)
[2019-05-10] MEDS: ENOXAPARIN 40 MG/0.4 ML SQ SCH (08:16)
[2019-05-10] MEDS: CEFTRIAXONE/SWI 1gm 1 GM/10 ML SYR IV SCH (08:16)
[2019-05-10] MEDS: GUAIFENESIN 600 MG SA TAB PO SCH ×2 (08:16→20:46)
[2019-05-10] MEDS: ENSURE ENLIVE 237 ML CAN PO SCH ×2 (08:17→20:49)
[2019-05-10] MEDS: PANTOPRAZOLE 40MG TABLET PO SCH (08:20)
--- NOTE | 2019-05-10 09:54 | P.PN ---
Subjective Date of Service: 05/10/19 Chief Complaint: SOB Subjective: No C/O voiced, Improving Patient seen and examined at bedside. Chart reviewed and case discussed with nursing staff. Case discussed with Dr. Guido No acute events overnight. Continues to be on oxygen. Reports slightly improved breathing. Feeling better with ativan and oxygen. Review of Systems 10-point ROS is otherwise unremarkable Physical Examination - Vital Signs Temperature: 98.6 F Blood Pressure: 132/66 Pulse: 94 Respirations: 18 Pulse Ox (%): 96 - Physical Exam General: Alert, In no apparent distress, Cachectic HEENT: Atraumatic, PERRLA, EOMI Neck: Supple, JVD not distended Respiratory: Diminished, Dull Cardiovascular: Regular rate/rhythm, Normal S1 S2 Gastrointestinal: Normal bowel sounds, No tenderness Musculoskeletal: No tenderness Integumentary: No rashes Neurological: Normal speech, Normal tone, Normal affect Lymphatics: No axilla or inguinal lymphadenopathy Assessment And Plan - Current Problems (Diagnosis) (1) Acute and chronic respiratory failure with hypoxia Current Visit: Yes Status: Acute Plan: -Continue on oxygen supplementation -monitor under telemetry -continue on bronchodilators -The patient cannot tolerate steroids due to interactions with other medications (2) Leukocytosis Current Visit: Yes Status: Acute Plan: -Monitor CBC daily -Blood cultures and sputum culture -Continue antibiotics (3) Pneumonia involving left lung Current Visit: Yes Status: Acute Plan: -Continue IV antibiotics -continue Mucinex and bronchodilators Qualifiers: Pneumonia type: due to unspecified organism (4) Lung cancer Current Visit: Yes Status: Chronic Plan: Patient with a history of stage IV lung cancer, with metastasis. -He follows up with -he will continue his follow up as an outpatient with them. Case was discussed with oncologist (5) Anxiety Current Visit: Yes Status: Acute Plan: Anxiety medication dosage increased for someone with a history of active cancer. Continue to monitor closely (6) Hyponatremia Current Visit: Yes Status: Acute Plan: Improving -continue to monitor his sodium and IV hydration at this time (7) Malnutrition Current Visit: No Status: Chronic Qualifiers: Malnutrition type: protein-calorie malnutrition (8) Anemia Current Visit: No Status: Chronic Plan: Continue to monitor H&H. Transfuse to keep above 7 - Plan DVT prophylaxis: Lovenox GI prophylaxis: Protonix Diet: Regular Disposition: Pending symptomatic improvement. Anticipate discharge home in the next 24 hr with continued outpatient oncology follow up. Will attempt to see if patient will qualify for home oxygen due to his cancer. Oxygen at home will help patient at home, due to his underlying lung cancer. Physician Review: Patient Assessed, Agree with Above Assessment and Plan
[2019-05-10] MEDS: DOCUSATE NA 100 MG CAP PO SCH ×2 (14:19→20:46)
[2019-05-10] MEDS: FAMOTIDINE 20 MG TAB PO SCH (20:45)
[2019-05-10] MEDS: ALPRAZOLAM 1 MG TABLET PO PRN (20:46)
[2019-05-11] MEDS: LEVALBUTEROL 1.25 MG/3 ML NEB NEB SCH ×4 (01:45→18:25)
[2019-05-11 06:01] LABS: Absolute Lymphocytes (CBC) 1.5 K/uL (0.7-4.9); Basophils % 0.4 % (0-1.3); Hematocrit 24.1 % (39.6-49.0); Lymphocytes % 9.4 % (15.3-44.8); MPV 7.3 fL (7.6-11.3); RBC Red Blood Cell Count 2.97 M/uL (4.33-5.43)
[2019-05-11 06:17] LABS: ALT/SGPT 18 U/L (12-78); AST/SGOT 34 U/L (15-37); Albumin 1.5 g/dL (3.4-5.0); Alkaline Phosphatase 92 U/L (45-117); BUN Blood Urea Nitrogen 15 mg/dL (7-18); Bicarbonate 30 mmol/L (21-32); Bilirubin Total 0.2 mg/dL (0.2-1.0); Glucose Level 100 mg/dL (74-106); Potassium 4.5 mmol/L (3.5-5.1); Protein, Total 6.2 g/dL (6.4-8.2); Sodium Level 137 mmol/L (136-145)
[2019-05-11] MEDS: MAGNESIUM HYDROXIDE 8% 30 ML PO SCH (07:54)
[2019-05-11] MEDS: FAMOTIDINE 20 MG TAB PO SCH ×2 (07:55→20:13)
[2019-05-11] MEDS: ENOXAPARIN 40 MG/0.4 ML SQ SCH (07:55)
[2019-05-11] MEDS: CYANOCOBALAMIN 1,000 MCG TAB PO SCH (07:55)
[2019-05-11] MEDS: GUAIFENESIN 600 MG SA TAB PO SCH ×2 (07:55→20:13)
[2019-05-11] MEDS: ENSURE ENLIVE 237 ML CAN PO SCH ×2 (07:56→20:13)
[2019-05-11] MEDS: CEFTRIAXONE/SWI 1gm 1 GM/10 ML SYR IV SCH (07:56)
[2019-05-11] MEDS: DOCUSATE NA 100 MG CAP PO SCH ×3 (07:56→20:13)
[2019-05-11] MEDS: AZITHROMYCIN IV 500 MG in NA CHLORIDE 0.9% 250 ML IVPB SCH (07:57)
[2019-05-11] MEDS: HYDROCODONE/APAP 10/325 TAB PO PRN ×3 (08:08→20:12)
--- NOTE | 2019-05-11 10:26 | P.PN ---
Subjective Date of Service: 05/11/19 Chief Complaint: SOB Subjective: No C/O voiced, Improving Patient seen and examined at bedside. Chart reviewed and case discussed with nursing staff. Case discussed with Dr. Guido No acute events overnight. Continues to be on oxygen. Reports slightly improved breathing. Feeling better with ativan and oxygen. Review of Systems 10-point ROS is otherwise unremarkable Physical Examination - Vital Signs Temperature: 98.5 F Blood Pressure: 110/61 Pulse: 99 Respirations: 20 Pulse Ox (%): 99 - Physical Exam General: Alert, In no apparent distress, Cachectic HEENT: Atraumatic, PERRLA, EOMI Neck: Supple, JVD not distended Respiratory: Dull Cardiovascular: Regular rate/rhythm, Normal S1 S2 Gastrointestinal: Normal bowel sounds, No tenderness Musculoskeletal: No tenderness Integumentary: No rashes Neurological: Normal speech, Normal tone, Normal affect Lymphatics: No axilla or inguinal lymphadenopathy Assessment And Plan - Current Problems (Diagnosis) (1) Acute and chronic respiratory failure with hypoxia Current Visit: Yes Status: Acute Plan: -Continue on oxygen supplementation -monitor under telemetry -continue on bronchodilators -The patient cannot tolerate steroids due to interactions with other medications (2) Leukocytosis Current Visit: Yes Status: Acute Plan: -Monitor CBC daily -Blood cultures and sputum culture -Continue antibiotics (3) Pneumonia involving left lung Current Visit: Yes Status: Acute Plan: -Continue IV antibiotics -continue Mucinex and bronchodilators Qualifiers: Pneumonia type: due to unspecified organism (4) Lung cancer Current Visit: Yes Status: Chronic Plan: Patient with a history of stage IV lung cancer, with metastasis. -He follows up with -he will continue his follow up as an outpatient with them. Case was discussed with oncologist (5) Anxiety Current Visit: Yes Status: Acute Plan: Anxiety medication dosage increased for someone with a history of active cancer. Continue to monitor closely (6) Hyponatremia Current Visit: Yes Status: Acute Plan: Improving -continue to monitor his sodium and IV hydration at this time (7) Malnutrition Current Visit: No Status: Chronic Qualifiers: Malnutrition type: protein-calorie malnutrition (8) Anemia Current Visit: No Status: Chronic Plan: Continue to monitor H&H. Transfuse to keep above 7 - Plan DVT prophylaxis: Lovenox GI prophylaxis: Protonix Diet: Regular Disposition: Pending symptomatic improvement. Anticipate discharge home in the next 24 hr with continued outpatient oncology follow up. Will attempt to see if patient will qualify for home oxygen due to his cancer. Oxygen at home will help patient at home, due to his underlying lung cancer. Physician Review: Patient Assessed, Agree with Above Assessment and Plan
[2019-05-12] MEDS: HYDROCODONE/APAP 10/325 TAB PO PRN (00:43)
[2019-05-12] MEDS: LEVALBUTEROL 1.25 MG/3 ML NEB NEB SCH ×2 (01:30→08:00)
[2019-05-12] MEDS ORDERED: HYDROMORPHONE HCL 1 MG/ML INJ IV ONE (02:26)
[2019-05-12] MEDS ORDERED: FENTANYL 25 MCG/PATCH TD SCH (02:28)
[2019-05-12] MEDS: FAMOTIDINE 20 MG TAB PO SCH (08:10)
[2019-05-12] MEDS: CYANOCOBALAMIN 1,000 MCG TAB PO SCH (08:10)
[2019-05-12] MEDS: ENOXAPARIN 40 MG/0.4 ML SQ SCH (08:10)
[2019-05-12] MEDS: AZITHROMYCIN IV 500 MG in NA CHLORIDE 0.9% 250 ML IVPB SCH (08:10)
[2019-05-12] MEDS: MAGNESIUM HYDROXIDE 8% 30 ML PO SCH ×2 (08:10→08:22)
[2019-05-12] MEDS: DOCUSATE NA 100 MG CAP PO SCH (08:10)
[2019-05-12] MEDS: CEFTRIAXONE/SWI 1gm 1 GM/10 ML SYR IV SCH (08:11)
[2019-05-12] MEDS: GUAIFENESIN 600 MG SA TAB PO SCH (08:14)
[2019-05-12] MEDS: ENSURE ENLIVE 237 ML CAN PO SCH (08:14)
[2019-05-12] MEDS: ALPRAZOLAM 1 MG TABLET PO PRN (11:21)
--- NOTE | 2019-05-12 11:38 | EKG ---
Test Date: 2019-05-12 Test Time: 11:23:30 Sous Chef: UYEN MEASUREMENT RESULTS: Intervals: Rate: 88 NV: 102 QRSD: 84 QT: 352 QTc: 425 [place]: P: 49 NV: 102 QRS: 36 T: -67 INTERPRETIVE STATEMENTS: Sinus rhythm with short NV Possible Left atrial enlargement ST & T wave abnormality, consider inferior ischemia ST & T wave abnormality, consider anterior ischemia Abnormal ECG Compared to ECG 05/08/2019 16:41:33 Short NV interval now present ST (T wave) deviation now present Possible ischemia now present Sinus tachycardia no longer present Electronically Signed On 05-12-19 11:37:31 CDT by Bebo Reddy
[2019-05-12 12:16] VITALS: BP 152/89; TEMP 97.5
[2019-05-12 12:22] VITALS: O2SAT 97
--- NOTE | 2019-05-15 14:37 | P.DS ---
Admission Date: 05/08/19 Discharge Date: 05/12/19 Disposition: ROUTINE DISCHARGE Discharge Condition: FAIR Reason for Admission: SOB - Problems (1) Acute and chronic respiratory failure with hypoxia Status: Acute (2) Leukocytosis Status: Acute (3) Pneumonia involving left lung Status: Acute Qualifiers: Pneumonia type: due to unspecified organism (4) Lung cancer Status: Chronic (5) Anxiety Status: Acute (6) Hyponatremia Status: Acute (7) Malnutrition Status: Chronic Qualifiers: Malnutrition type: protein-calorie malnutrition (8) Anemia Status: Chronic Brief History of Present Illness: 63 yo male with past medical history of Lung Ca left side followed by Dr Guido came to ER with SOB and panic attack which started today and was brought to ER . Associated with cough with mucoid expectoration . Denies any Chest pain .SOB worsen with minimal exertion . He started having panic attack and called Dr. Guido Advised him to come to the ER. Denies any fever no chills No nausea vomiting or diarrhea Patient is a poor historian hence most of the history obtained from the chart review and also talking to the family member who is at the bedside. At the time of interview patient is still mildly distressed on oxygen. Denies any chest pain. Afebrile Hospital Course: Patient was admitted for acute on chronic respiratory failure with hypoxia. He was continued on oxygen supplementation, bronchodilators. He could not tolerate steroids the interaction with other medications. He does have a history of lung cancer, stage IV with metastasis. He follows up in the oncology clinic. It seems that patient may have had an anxiety attack and gotten short of breath. He was provided with anxiolytics here. The oxygen anxiolytics helped his symptoms. Social work was consulted to help set of oxygen at home. His discharge was delayed until his home oxygen was set up. He was then discharged home with oxygen and anxiolytics. He will follow up with his oncologist for further management. Vital Signs/Physical Exam: Temp Pulse Resp BP Pulse Ox 97.5 F 88 18 152/89 H 97 05/12/19 12:00 05/12/19 12:00 05/12/19 12:00 05/12/19 12:00 05/12/19 12:00 General: Alert, In no apparent distress, Cachectic HEENT: Atraumatic, PERRLA, EOMI Neck: Supple, JVD not distended Respiratory: Clear to auscultation bilaterally, Normal air movement Cardiovascular: Regular rate/rhythm, Normal S1 S2 Gastrointestinal: Normal bowel sounds, No tenderness Musculoskeletal: No tenderness Integumentary: No rashes Neurological: Normal speech, Normal tone, Normal affect Lymphatics: No axilla or inguinal lymphadenopathy Laboratory Data at Discharge: WBC 16.0 K/uL (4.3-10.9) H 05/11/19 05:25 Hgb 7.8 g/dL (13.6-17.9) L* 05/11/19 05:25 Hct 24.1 % (39.6-49.0) L 05/11/19 05:25 Plt Count 511 K/uL (152-406) H 05/11/19 05:25 PT 14.0 SECONDS (9.5-12.5) H 05/08/19 16:15 INR 1.19 05/08/19 16:15 Sodium 137 mmol/L (136-145) 05/11/19 05:25 Potassium 4.5 mmol/L (3.5-5.1) 05/11/19 05:25 BUN 15 mg/dL (7-18) 05/11/19 05:25 Creatinine 0.64 mg/dL (0.55-1.3) 05/11/19 05:25 Glucose 100 mg/dL (74-106) 05/11/19 05:25 Magnesium 2.1 mg/dL (1.8-2.4) 05/08/19 16:15 Total Bilirubin 0.2 mg/dL (0.2-1.0) 05/11/19 05:25 AST 34 U/L (15-37) 05/11/19 05:25 ALT 18 U/L (12-78) 05/11/19 05:25 Alkaline Phosphatase 92 U/L (45-117) 05/11/19 05:25 Troponin I < 0.02 ng/mL (0.0-0.045) 05/12/19 12:15 Home Medications: Hydrocodone/Acetaminophen [Hydrocodone-Acetamin 5-325 mg] 2 tab PO Q4HR PRN 01/19 Ondansetron [Zofran (Odt)*] 1 tab PO Q6HR 05/08/19 fentaNYL [Fentanyl] 25 mcg TOP DIRECTED 05/08/19 B12 1 tab PO DAILY 05/09/19 Docusate [Colace Cap*] 1 tab PO TID 05/09/19 Famotidine [Pepcid] 20 mg PO BID 05/09/19 Pembrolizumab [Keytruda] 100 mg IV DIRECTED 05/09/19 ALPRAZolam [Xanax*] 1 mg PO TID PRN #60 tab 05/12/19 New Medications: ALPRAZolam [Xanax*] 1 mg PO TID PRN #60 tab PRN Reason: Anxiety Diet: Regular Activity: Ad milla Followup: Gloria Ferris MD [ACTIVE - CAN ADMIT] - (call to schedule appointment) Time spent managing pt's care (in minutes): 55
== END 2019-05-12 13:40 | disposition home or self-care (01) | DRG 193 ==
LOC: ER 15:15 → ERHOLD 18:24 → 4TH 19:48
PROVIDERS: ADMIT Family Medicine; ATTEND Family Medicine
PROC: 5A09357 Assistance with Respiratory Ventilation, Less than 24 Consecutive Hours, Continuous Positive Airway Pressure (ICD-10-PCS; principal; 2019-05-08)
DX: J15.9 Unspecified bacterial pneumonia (principal); J96.21 Acute and chronic respiratory failure with hypoxia; E87.1 Hypo-osmolality and hyponatremia; E44.1 Mild protein-calorie malnutrition; Z68.1 Body mass index [BMI] 19.9 or less, adult; C34.90 Malignant neoplasm of unspecified part of unspecified bronchus or lung; C79.9 Secondary malignant neoplasm of unspecified site; D72.829 Elevated white blood cell count, unspecified; F41.9 Anxiety disorder, unspecified; D63.8 Anemia in other chronic diseases classified elsewhere
CPT/HCPCS: 36415; 71045; 71046; 74018; 80048; 80053; 80076; 82805; 82962; 83605; 83735; 83880; 84145; 84484; 85025; 85610; 87040; 87070; 87205; 87804; 93005; 94640; 94660; 94760; 96361; 96365; 99285; J0456; J0696; J1170; J1650; J7030

== ENCOUNTER 2019-07-07 07:58 | Day surgery (SDC) | payer OTHER ==
--- OUTSIDE RECORDS SUMMARY | 2019-07-07 08:08 | XMS REPORT ---
:1955 [facility] Address [address] [place] [address] Dr. Watts [address] [place] [address] Care Team Providers Name Role Phone BrianneMera JULIO CESAR Unavailable Unavailable Cain Jean Unavailable Unavailable Elkin Barroso Unavailable Unavailable Problems This patient has no known problems. Allergies, Adverse Reactions, Alerts This patient has no known allergies or adverse reactions. Medications This patient has no known medications. Results Test Description Test Time Test Comments Text Results Atomic Results Result Comments [id number] 2019-04-11 SURGICAL 12:14:00 [facility] PATHOLOGY, [address] [place], [place] [id number] LEVEL V Laboratory Printed: 04/11/[address] [place] [address] DAEMPathology Page : 1 Patient: DARA HOLMAN Birthdate: 1955 Age/Sex: 63/M Spec#: [id number]: Cain Jean MD Specimen Date: Received Date: 03/21/19 Specimen: LYMPH NODE CLINICAL DIAGNOSIS smoker, lung mass ADDENDUM Addendum # 2 Entered: 04/11/19-4465 The paraffin block was sent to [facility] for the Lung Panel. Results are reported asfollows: PD-L1 22C3 FDA ( KEYTRUDA) FOR NSCLC: HIGH EXPRESSIONTumor Proportion Score: 60%; Intensity: 3+ BRAF Mutation Analysis: NOT DETECTED. EGFR Mutation Analysis: NOT DETECTED. ALK FISH: NOT DETECTED (NEGATIVE). ROS1 FISH: NOT DETECTED (NEGATIVE). The reports from [employer] have been scanned into the patient's EMR and faxedto Dr. Choi.Pathologist:Harshil Dwyer MD Entered by: 04/11/19 - 1045 LAB.SHAHZAD Patient: DARA HOLMAN Re07/21Loc: T4-B MR#: [id number] CONTINUED ON NEXT PAGE Dis: Sta: DIS IN [place] [id number] Laboratory Printed: 04/11/[address] [place] [address] [facility] : 2 Patient: DARA HOLMAN [id number] (Continued) ADDENDUM (Continued) Addendum Signed (Electronically Signed)_ Harshil Dwyer MD 04/11/19 Addendum # 1 Entered: 03/25/195861 This addendum is issued to report the results of additional immunohistochemical stains. The following immunohistochemical stains are performed at [facility] with adequate controlsand interpreted by Florentin Lloyd MD, with the following results: Arginase-1 - - Negative in the neoplastic cells.Estrogen receptor -- Negative in the neoplastic cells.BAYRON-3 -- Negative in the neoplastic cells.PAX-8 -- Negative in the neoplastic cells.HepPar-1 -- Focal, variable positivity of the neoplastic cells; most of the tumor cellsappear negative. Comment: The additional immunohistochemical stains do not point to a definitive origin forthis malignancy. 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 These tumors are characterized by immunoreactivity to CK7 andHepPar-1 while being negative for TTF-1. Pathologist:Florentin Lloyd MD Entered by: 03/25/19 8897 EDMAR Addendum Signed (Electronically Signed)_ Florentin Lloyd MD 03/25/19 PATHOLOGIC DIAGNOSIS Lymph node, left axilla, excisional biopsy: - Metastatic carcinoma. Comment: This patient has a prior lung and cytology specimen that showed some necrosis withno viable tumor (cases [id number] and [id number]). The lymph node shows evidence of ametastatic poorly differentiated carcinoma. A battery of immunohistochemical stains did not Patient: DARA HOLMAN Re07/21Loc: T4-B MR#: [id number] CONTINUED ON NEXT PAGE Dis: Sta: DIS IN [place] [id number] [facility] [place] [address] Laboratory Printed: 04/11/19 1217 [facility] DAEMPathology Page : 3 Patient: DARA HOLMAN [id number] (Continued) PATHOLOGIC DIAGNOSIS (Continued) definitively specify where this tumor arose from. The tumor cells were negative for lungadenocarcinoma markers TTF-1 and Napsin and showed only rare reactivity to CK5/6, a squamouscell carcinoma marker. Further immunohistochemical stains will be performed to try anddetermine the site of origin. Those results will be issued in an addendum. This case was reviewed in intradepartmental consultation. Pathologist:Florentin Lloyd MD Entered by:03/23/19 - 1532 EDMAR PROCEDURES: 96651, 65474, ALK FISH 60926, 33171/2, 94422/22, ROS1 FISH 64154, 71829 BRAF, 83873 EGFR GROSS DESCRIPTION A. LYMPH NODE BIOPSY LEFT AXILLARY The specimen is received in 10% formalin, and is labeled with the patient's name and "leftaxillary node". The specimen consists of a pink-pham nodule measuring 2.8 x 2.5 x 1.6 cm ingreatest dimensions. Upon sectioning it reveals a pink to white-pham surface.Manager Reporting sections are submitted in two cassettes, A1-2. Dictated by: EDUIN NETTLES Entered by: 03/21/19 - 163[facility].YGP MICROSCOPIC DESCRIPTION The lymph node is completely replaced by a metastatic carcinoma with areas of necrosis.There are some glandular structures seen. The tumor cells are large with irregular nuclearcontours, abundant eosinophilic cytoplasm, and visible nucleoli. Mitotic figures are easilyseen. Patient: DARA HOLMAN Re03/14/19Loc: T4-B MR#: [id number] CONTINUED ON NEXT PAGE Dis: 03/21/19Sta: DIS IN [address] [address] Laboratory Printed: 04/11/19 8163 [facility] DAEMPathology Page : 4 Patient: DARA HOLMAN [id number] (Continued) MICROSCOPIC DESCRIPTION (Continued) The following immunohistochemical stains have been performed (all with adequate workingcontrols) with the following results: p63 -- Negative in the neoplastic cells.CK5/6 -- Rare positivity of the neoplastic cells; most are negative.TTF-1 -- Negative in the neoplastic cells.Napsin -- Negative in the neoplastic cells.Pancytokeratin -- Positive in the neoplastic cells.CK7 -- Positive in the neoplastic cells.CK20 -- Negative in the neoplastic cells.Chromogranin -- Negative in the neoplastic cells.Synaptophysin -- Negative in the neoplastic cells.PSA -- Negative in the neoplastic cells.PSAP -- Negative in the neoplastic cells.CDX-2 -- Negative in the neoplastic cells.CD10 -- Negative in the neoplastic cells.Vimentin -- Negative in the neoplastic cells.S100 -- Negative in the neoplastic cells.MART-1 -- Negative in the neoplastic cells.Tyrosinase -- Variable positivity of the neoplastic cells.MOC31 -- Positive in the neoplastic cells. Signed ( Electronically Signed) Florentin Lloyd MD 03/23/19 Patient: DARA HOLMAN Re03/14/19Loc : T4-B MR#: [id number] END OF REPORT Dis: 03/21/19Sta: DIS IN Packed 2019-04-08 [id number] OP [facility] TFUSE 04/08/19 0936 [id number] OP Cells - 15:39:00 [facility] TFUSE 1216 Leukoreduce d Type Screen 2019-04-08 15:39:00 Test Item Value Reference Range Comments Blood Type Rh (test code=BT) O POSITIVE Antibody Screen (test code=ABSC) NEGATIVE Received Blood Or Been w/in Past 90 Days? UNKNOWNCulture, Oesij5590-62- 19 08:04:00 Test Item Value Reference Range Comments Culture, Blood (test code=BC) NG5 Drqunlykk9784-53-74 06:30:00 Test Item Value Reference Range Comments Chemistry (test 128 mmol/L 136-145 code=NA-T) Chemistry (test code=K-T) 4.1 mmol/L 3.5-5.1 Chemistry (test code=CL) 93 mmol/L 98-107 Chemistry (test code=CO2) 27 mmol/L 23-31 Chemistry (test 12 mmol/L 10-20 code=ANGP) Chemistry (test code=BUN) 10 mg/dL 8.4-25.7 Chemistry (test 0.66 mg/dL 0.7-1.3 code=CREATT) Chemistry (test Greater than 90 Reference Range for code=EGFRMDRD) Estimated GFR: Greater than 90 mL/min/1.73 m2NOTE:The MDRD equation has not been validated for use with theelderly (over 70 years of age), women, patientswith serious comorbid condition or persons with extremes ofbody size, muscle mass, or nutritional status. Chemistry (test 98 mg/dL 80-115 code=GLU-T) Chemistry (test code=CA) 8.1 mg/dL 7.8-10.44 Ylvpmmiihv6354-25-84 06:06:00 Test Item Value Reference Range Comments Hematology (test code=WBCT) 13.7 thou/uL 4.8-10.8 Hematology (test code=RBCT) 3.17 mill/uL 4.70-6.10 Hematology (test code=HGBT) 8.9 g/dL 14.0-18.0 Hematology (test code=HCTT) 27.0 % 42.0-52.0 Hematology (test code=MCV) 85.1 fL 78.0-98.0 Hematology (test code=MCH) 28.1 pg 27.0-31.0 Hematology (test code=MCHC) 33.1 g/dL 32.0-36.0 Hematology (test code=RDW) 14.1 % 11.5-14.5 Hematology (test code=PLTT) 701 thou/uL 130-400 Hematology (test code=MPV) 6.1 fL 7.4-10.4 Hematology (test code=%NEUT) 77.6 % 42.0-75.0 Hematology (test code=%LYMPH) 14.1 % 21.0-51.0 Hematology (test code=%MONO) 6.5 % 0.0-10.0 Hematology (test code=%EOS) 1.8 % 0.0-10.0 Hematology (test code=%BASO) 0.0 % 0.0-1.0 Hematology (test code=NEUT#) 10.6 thou/uL 1.40-6.50 Hematology (test code=LYMPH#) 1.9 thou/uL 1.20-3.40 Hematology (test code=MONO#) 0.9 thou/uL 0.11-0.59 Hematology (test code=EOS#) 0.2 thou/uL 0.0-0.7 Hematology (test code=BASO#) 0.0 thou/uL 0.0-0.2 Vagdfotsl8078-90-57 06:26:00 Test Item Value Reference Range Comments Chemistry (test 129 mmol/L 136-145 code=NA-T) Chemistry (test code=K-T) 4.1 mmol/L 3.5-5.1 Chemistry (test code=CL) 96 mmol/L 98-107 Chemistry (test code=CO2) 26 mmol/L 23-31 Chemistry (test 11 mmol/L 10-20 code=ANGP) Chemistry (test code=BUN) 8 mg/dL 8.4-25.7 Chemistry (test 0.64 mg/dL 0.7-1.3 code=CREATT) Chemistry (test Greater than 90 Reference Range for code=EGFRMDRD) Estimated GFR: Greater than 90 mL/min/1.73 m2NOTE:The MDRD equation has not been validated for use with theelderly (over 70 years of age), women, patientswith serious comorbid condition or persons with extremes ofbody size, muscle mass, or nutritional status. Chemistry (test 95 mg/dL 80-115 code=GLU-T) Chemistry (test code=CA) 8.1 mg/dL 7.8-10.44 Chemistry (test 0.5 mg/dL 0.2-1.2 code=TBILI-T) Chemistry (test code=TP) 5.5 g/dL 5.8-8.1 Chemistry (test code=ALB) 2.5 g/dL 3.4-4.8 Chemistry (test 3.0 g/dL 2.4-3.5 code=GLOB) Chemistry (test code=AG) 0.8 g/dL 1.2-2.2 Chemistry (test code=ALP) 112 U/L 40-150 Chemistry (test code=AST) 27 U/L 5-34 Chemistry (test code=ALT) 13 U/L 8-55 Kygeyjmbex2937-32-28 06:06:00 Test Item Value Reference Range Comments Hematology (test code=WBCT) 12.9 thou/uL 4.8-10.8 Hematology (test code=RBCT) 3.15 mill/uL 4.70-6.10 Hematology (test code=HGBT) 8.5 g/dL 14.0-18.0 Hematology (test code=HCTT) 26.6 % 42.0-52.0 Hematology (test code=MCV) 84.4 fL 78.0-98.0 Hematology (test code=MCH) 27.1 pg 27.0-31.0 Hematology (test code=MCHC) 32.1 g/dL 32.0-36.0 Hematology (test code=RDW) 13.9 % 11.5-14.5 Hematology (test code=PLTT) 651 thou/uL 130-400 Hematology (test code=MPV) 6.2 fL 7.4-10.4 Hematology (test code=%NEUT) 78.5 % 42.0-75.0 Hematology (test code=%LYMPH) 12.7 % 21.0-51.0 Hematology (test code=%MONO) 6.3 % 0.0-10.0 Hematology (test code=%EOS) 2.2 % 0.0-10.0 Hematology (test code=%BASO) 0.3 % 0.0-1.0 Hematology (test code=NEUT#) 10.1 thou/uL 1.40-6.50 Hematology (test code=LYMPH#) 1.6 thou/uL 1.20-3.40 Hematology (test code=MONO#) 0.8 thou/uL 0.11-0.59 Hematology (test code=EOS#) 0.3 thou/uL 0.0-0.7 Hematology (test code=BASO#) 0.0 thou/uL 0.0-0.2 Packed Cells - Dawxflmylshh6747-21-42 03:58:[id number] OP [facility] TFUSE 03/18/19 1343 [id number] OP [facility] TFUSE 03/18/19 1645Type [id number]- 17 03:58:00 Test Item Value Reference Range Comments Blood Type Rh (test code=BT) O POSITIVE Antibody Screen (test code=ABSC) NEGATIVE Received Blood Or Been w/in Past 90 Days? [id number] SURGICAL PATHOLOGY, LEVEL [id number] 14:53:00 [place] [id number] Laboratory Printed: 03/18/19 1453 BKG DAEMPathology Page: 1 Patient : DARA HOLMAN Birthdate: 1955 Age/Sex: 63/M Spec#: [id number] : Bebo Gandhi MD Specimen Date: 03/16/19 Received Date: 03/16/19 Specimen: LUNG BIOPSY CLINICAL DIAGNOSIS lung mass, GI bleed, anemia PATHOLOGIC DIAGNOSIS Lung, left main stem, biopsy: - Small foci of necrosis and benign respiratory epithelium. - No definite malignancy identified. Comment: The lung biopsy showed very small foci of necrosis with some associated benignappearing respiratory epithelium. Although the necrosis may represent tumor, no viablemalignancy is identified. This case is correlated with cytology case [id number] which showedsimilar findings. Pathologist:Florentin Lloyd MD Entered by:03/18/19812 EDMAR PROCEDURES: 84737, 67337, 56564 GROSS DESCRIPTION A. LUNG BIOPSY LEFT MAIN STEMThe specimen is received in 10% formalin, and is labeled with the patient's name and "leftmain stem bronchus biopsy." The specimen consists of multiple pink-pham soft tissuefragments measuring 0.6 cm in aggregate. The specimen is entirely submitted in one Patient: DARA HOLMAN Re03/14/19Loc: T4-B MR# : [id number] CONTINUED ONNEXT PAGE Dis: Sta: ADM IN [address] [address] Laboratory Printed: 03/18/19 [facility]8 [facility] DAEMPathology Page: 2 Patient: DARA HOLMAN [id number] (Continued) GROSS DESCRIPTION (Continued) cassette. Dictated by: Latrice Galvez Entered by: - 133[facility] MICROSCOPIC DESCRIPTION A microscopic examination was performed to arrive at the diagnostic conclusion reported.PAS/Alcian blue stain performed with adequate control is negative for fungi. It alsohighlights acidic mucin associated with benign respiratory epithelium. Signed (Electronically Signed) ___ Florentin Lloyd MD 03/18/19 Patient: DARA HOLMAN Re03/14/19Loc: T4-B MR#: [id number] END OF REPORT Dis: Sta: ADM [id number] SURGICAL PATHOLOGY, LEVEL [id number] 14:52:[address] [address] Laboratory Printed: 03/18/19 6082 [facility] DAEMPathology Page: 1 Patient : DARA HOLMAN Birthdate: 1955 Age/Sex: 63/M Spec#: [id number] : Bebo Gandhi MD Specimen Date: 03/16/19 Received Date: 03/16/19 Specimen: BRONCHIAL BRUSHINGS PATHOLOGIC DIAGNOSIS A. Bronchial brushings, left main stem, cytology: - Inflammatory cells and respiratory epithelial cells. - No malignant cells identified. B. Bronchial washings, cytology and cell block: - Degenerated/necrotic material composed of inflammatory cells and respiratory epithelial cells. - No malignant cells identified. Comment: Both specimens do not show definite evidence of malignancy. There isdegenerated/ necrotic material seen in specimen B; however no definite tumor is identified.This case is correlated with surgical case [id number]. Pathologist: Florentin Lloyd MD Entered by:03/18/191449 EDMAR PROCEDURES: 54322 , 45723, 64225, 87556, 50037/5 GROSS DESCRIPTION A. BRONCHIAL BRUSHINGS Left Main Stem Received 1 brush tip in 15 m CytoLyt.Prepared 1 ThinPrep slide. Patient: DARA HOLMAN Re03/14/19Loc: T4-B MR#: [id number] CONTINUED ON NEXT PAGE Dis: Sta:ADM IN [place] [address] [facility] [place] [address] Laboratory Fax: Printed: 03/18/19 6121 [facility] 2 Patient: DARA HOLMAN [id number] (Continued) GROSS DESCRIPTION (Continued) B. BRONCHIAL WASHINGS Received 60 ml bloody fluid containing CytoLyt. Prepared 1 ThinPrep slide and a cell block. Dictated by: Zhanna CHERY ([facility]) Entered by: 03/16/19 - 4332 [facility] MICROSCOPIC DESCRIPTION A microscopic examination was performed on specimens A and B to arrive at the diagnosticconclusion reported. The following immunohistochemical stains have been performed on the cell block of specimen B(all with adequate working controls) with the following results: Pancytokeratin: Highlights respiratory epithelial cells.TTF-1: No significant staining.Synaptophysin: No significant staining.Chromogranin: No significant staining.p63: A few groups of cells are staining; vast majority of cells are negative.CK5/6: A few groups of cells are staining (more than p63); extensive background staining isseen. Signed (Electronically Signed) Florentin Lloyd MD 03/18/19 Patient: DARA HOLMAN Re03/14/19Loc: T4-B MR#: [id number] END OF REPORT Dis: Sta: ADM NONynkucbcuj9823-11-14 05:52:00 Test Item Value Reference Range Comments Hematology (test code=WBCT) 11.8 thou/uL 4.8-10.8 Hematology (test code=RBCT) 2.36 mill/uL 4.70-6.10 Hematology (test code=HGBT) 6.5 g/dL 14.0-18.0 Hematology (test code=HCTT) 19.9 % 42.0-52.0 Hematology (test code=MCV) 84.5 fL 78.0-98.0 Hematology (test code=MCH) 27.6 pg 27.0-31.0 Hematology (test code=MCHC) 32.7 g/dL 32.0-36.0 Hematology (test code=RDW) 14.1 % 11.5-14.5 Hematology (test code=PLTT) 629 thou/uL 130-400 Hematology (test code=MPV) 6.3 fL 7.4-10.4 Hematology (test code=%NEUT) 77.0 % 42.0-75.0 Hematology (test code=%LYMPH) 13.6 % 21.0-51.0 Hematology (test code=%MONO) 7.8 % 0.0-10.0 Hematology (test code=%EOS) 1.4 % 0.0-10.0 Hematology (test code=%BASO) 0.1 % 0.0-1.0 Hematology (test code=NEUT#) 9.1 thou/uL 1.40-6.50 Hematology (test code=LYMPH#) 1.6 thou/uL 1.20-3.40 Hematology (test code=MONO#) 0.9 thou/uL 0.11-0.59 Hematology (test code=EOS#) 0.2 thou/uL 0.0-0.7 Hematology (test code=BASO#) 0.0 thou/uL 0.0-0.2 Chemistry - [id number] 18:47:00 Test Item Value Reference Range Comments Chemistry - Urine (test code=URNA) 184 mmol/L Not Available Chemistry - Urine (test code=URK) 26.0 mmol/L Chemistry - [id number] 18:43:00 Test Item Value Reference Range Comments Chemistry - Urine (test code=UROSMO) 551 mOsm/kg 300-900 Chemistry - [id number] 13:43:00 Test Item Value Reference Range Comments Chemistry - Specials (test code=OSMO) 269 mOsm/kg 280-295 [id number] 09:51:00 Test Item Value Reference Range Comments Chemistry (test 126 mmol/L 136-145 code=NA-T) Chemistry (test code=K-T) 4.0 mmol/L 3.5-5.1 Chemistry (test code=CL) 96 mmol/L 98-107 Chemistry (test code=CO2) 24 mmol/L 23-31 Chemistry (test 10 mmol/L 10-20 code=ANGP) Chemistry (test code=BUN) 6 mg/dL 8.4-25.7 Chemistry (test 0.63 mg/dL 0.7-1.3 code=CREATT) Chemistry (test Greater than 90 Reference Range for code=EGFRMDRD) Estimated GFR: Greater than 90 mL/min/1.73 m2NOTE:The MDRD equation has not been validated for use with theelderly (over 70 years of age), women, patientswith serious comorbid condition or persons with extremes ofbody size, muscle mass, or nutritional status. Chemistry (test 93 mg/dL 80-115 code=GLU-T) Chemistry (test code=CA) 7.8 mg/dL 7.8-10.44 Evqubjypem7560-66-57 09:46:00 Test Item Value Reference Range Comments Hematology (test code=WBCT) 14.3 thou/uL 4.8-10.8 Hematology (test code=RBCT) 2.64 mill/uL 4.70-6.10 Hematology (test code=HGBT) 7.1 g/dL 14.0-18.0 Hematology (test code=HCTT) 22.4 % 42.0-52.0 Hematology (test code=MCV) 84.7 fL 78.0-98.0 Hematology (test code=MCH) 27.0 pg 27.0-31.0 Hematology (test code=MCHC) 31.8 g/dL 32.0-36.0 Hematology (test code=RDW) 14.1 % 11.5-14.5 Hematology (test code=PLTT) 695 thou/uL 130-400 Hematology (test code=MPV) 6.2 fL 7.4-10.4 Hematology (test code=%NEUT) 84.7 % 42.0-75.0 Hematology (test code=%LYMPH) 9.0 % 21.0-51.0 Hematology (test code=%MONO) 5.3 % 0.0-10.0 Hematology (test code=%EOS) 0.6 % 0.0-10.0 Hematology (test code=%BASO) 0.3 % 0.0-1.0 Hematology (test code=NEUT#) 12.1 thou/uL 1.40-6.50 Hematology (test code=LYMPH#) 1.3 thou/uL 1.20-3.40 Hematology (test code=MONO#) 0.8 thou/uL 0.11-0.59 Hematology (test code=EOS#) 0.1 thou/uL 0.0-0.7 Hematology (test code=BASO#) 0.0 thou/uL 0.0-0.2 Respiratory [id number] 15:41:00 Test Item Value Reference Range Comments Respiratory Culture (test code=RESPC) GS Respiratory Culture (test code=RESPC1) MO NRF Respiratory Culture (test code=RESPC1) NF Mxvsunmdyh5026-32-83 13:41:00 Test Item Value Reference Range Comments Hematology (test code=WBCT) 21.6 thou/uL 4.8-10.8 Hematology (test code=RBCT) 2.85 mill/uL 4.70-6.10 Hematology (test code=HGBT) 8.0 g/dL 14.0-18.0 Hematology (test code=HCTT) 24.3 % 42.0-52.0 Hematology (test code=MCV) 85.2 fL 78.0-98.0 Hematology (test code=MCH) 28.1 pg 27.0-31.0 Hematology (test code=MCHC) 33.0 g/dL 32.0-36.0 Hematology (test code=RDW) 14.1 % 11.5-14.5 Hematology (test code=PLTT) 807 thou/uL 130-400 Hematology (test code=MPV) 6.1 fL 7.4-10.4 Hematology (test code=NE) 85 % 42-75 Hematology (test code=BA) 3 % 5-11 Hematology (test code=LY) 8 % 21-51 Hematology (test code=MO) 2 % 0-10 Hematology (test code=EO) 1 % 0-10 Hematology (test code=BAS) 1 % 0-2 Hematology (test code=POLY) MODERATE=3-4 cells (100X) 0-2/hpf Hematology (test code=PCOMMENT) Appears Increased Tyree 03/16/19 0900.Esbhozjef6093-64-35 13:21:00 Test Item Value Reference Range Comments Chemistry (test 128 mmol/L 136-145 code=NA-T) Chemistry (test code=K-T) 4.2 mmol/L 3.5-5.1 Chemistry (test code=CL) 95 mmol/L 98-107 Chemistry (test code=CO2) 25 mmol/L 23-31 Chemistry (test 12 mmol/L 10-20 code=ANGP) Chemistry (test code=BUN) 7 mg/dL 8.4-25.7 Chemistry (test 0.71 mg/dL 0.7-1.3 code=CREATT) Chemistry (test Greater than 90 Reference Range for code=EGFRMDRD) Estimated GFR: Greater than 90 mL/min/1.73 m2NOTE:The MDRD equation has not been validated for use with theelderly (over 70 years of age), women, patientswith serious comorbid condition or persons with extremes ofbody size, muscle mass, or nutritional status. Chemistry (test 108 mg/dL 80-115 code=GLU-T) Chemistry (test code=CA) 8.3 mg/dL 7.8-10.44 Tyree 03/16/19 0900.Culture, [id number] 11:01:00 Test Item Value Reference Range Comments Culture, Urine (test code=URC) NG48 Ynwkzoon7727-42-78 12:17:00 Test Item Value Reference Range Comments Accuchek (test code=ACU) 99 mg/dL 70-110 [id number] 06:48:00 Test Item Value Reference Range Comments Chemistry (test 128 mmol/L 136-145 code=NA-T) Chemistry (test code=K-T) 4.2 mmol/L 3.5-5.1 Chemistry (test code=CL) 97 mmol/L 98-107 Chemistry (test code=CO2) 22 mmol/L 23-31 Chemistry (test 13 mmol/L 10-20 code=ANGP) Chemistry (test code=BUN) 9 mg/dL 8.4-25.7 Chemistry (test 0.72 mg/dL 0.7-1.3 code=CREATT) Chemistry (test Greater than 90 Reference Range for code=EGFRMDRD) Estimated GFR: Greater than 90 mL/min/1.73 m2NOTE:The MDRD equation has not been validated for use with theelderly (over 70 years of age), women, patientswith serious comorbid condition or persons with extremes ofbody size, muscle mass, or nutritional status. Chemistry (test 93 mg/dL 80-115 code=GLU-T) Chemistry (test code=CA) 8.3 mg/dL 7.8-10.44 Vgmratsxju3618-63-05 06:29:00 Test Item Value Reference Range Comments Hematology (test code=WBCT) 15.3 thou/uL 4.8-10.8 Hematology (test code=RBCT) 2.81 mill/uL 4.70-6.10 Hematology (test code=HGBT) 8.0 g/dL 14.0-18.0 Hematology (test code=HCTT) 24.0 % 42.0-52.0 Hematology (test code=MCV) 85.6 fL 78.0-98.0 Hematology (test code=MCH) 28.5 pg 27.0-31.0 Hematology (test code=MCHC) 33.4 g/dL 32.0-36.0 Hematology (test code=RDW) 14.0 % 11.5-14.5 Hematology (test code=PLTT) 699 thou/uL 130-400 Hematology (test code=MPV) 6.2 fL 7.4-10.4 Hematology (test code=%NEUT) 81.3 % 42.0-75.0 Hematology (test code=%LYMPH) 11.9 % 21.0-51.0 Hematology (test code=%MONO) 5.8 % 0.0-10.0 Hematology (test code=%EOS) 0.7 % 0.0-10.0 Hematology (test code=%BASO) 0.3 % 0.0-1.0 Hematology (test code=NEUT#) 12.4 thou/uL 1.40-6.50 Hematology (test code=LYMPH#) 1.8 thou/uL 1.20-3.40 Hematology (test code=MONO#) 0.9 thou/uL 0.11-0.59 Hematology (test code=EOS#) 0.1 thou/uL 0.0-0.7 Hematology (test code=BASO#) 0.0 thou/uL 0.0-0.2 Type [id number] 01:08:00 Test Item Value Reference Range Comments Blood Type Rh (test code=BT) O POSITIVE Antibody Screen (test code=ABSC) NEGATIVE Received Blood Or Been w/in Past 90 Days? UNKNOWNReceived Blood Or Been w/in Past 90 Days? NOScheduled Surgery Date: NO SURGERYIs Surgery Date Greater than 7 days from now? NOPacked Cells - [id number] 01:08 :[id number] [facility] TFUSE 5591Wuoeskdxcf6606-94-33 13:19:00 Test Item Value Reference Range Comments Hematology (test code=HGBT) 6.5 g/dL 14.0-18.0 Hematology (test code=HCTT) 20.1 % 42.0-52.0 Aesfjtiazt3681-47-83 13:15:00 Test Item Value Reference Range Comments Urinalysis (test code=UACLR) Yellow Yellow Urinalysis (test code=UACLY) Clear Clear Urinalysis (test code=SPGR) 1.010 1.005-1.030 Urinalysis (test code=FELY) 7.5 5.0-9.0 Urinalysis (test code=UALEU) Negative Negative Urinalysis (test code=UANIT) Negative Negative Urinalysis (test code=PROUADIP) Negative mg/dL Neg-Trace Urinalysis (test code=GLUCU) Negative mg/dL Negative Urinalysis (test code=KETU) Negative mg/dL Negative Urinalysis (test code=UAUROB) 0.2 mg/dL Less than 2 Urinalysis (test code=UABIL) Negative Negative Urinalysis (test code=UABLD) Negative Negative Urinalysis (test code=UARBC) 0-3 HPF 0-3 Urinalysis (test code=UAWBC) 0-3 HPF 0-3 Urinalysis (test code=UASQUAM) 0-3 HPF 0-3 Urinalysis (test code=UABAC) None Seen HPF None Seen Urine Source: Urine [id number] 13:02:00 Test Item Value Reference Range Comments Hematology (test code=MALT) None Seen None Seen A pathologist will review all smears. Speciation will beperformed by the [facility]. Hematology (test Negative for malaria or code=MALPATH) Aaron GONZALEZ M.D.cpt; [id number] Retype Verify-Blood Type [id number] 11:41:00 Test Item Value Reference Range Comments Blood Type Rh (test code=BT) O POSITIVE Occult Blood, Stool [id number] 10:27:00 Test Item Value Reference Range Comments Occult Blood, Stool DIAGNOSTIC (test code=OCCSTD) IFOB Occult Blood, Stool DIAGNOSTIC (test code=OCCSTD1) P [id number] 09:51:00 Test Item Value Reference Range Comments Chemistry (test 131 mmol/L 136-145 code=NA-T) Chemistry (test code=K-T) 4.7 mmol/L 3.5-5.1 Chemistry (test code=CL) 95 mmol/L 98-107 Chemistry (test code=CO2) 24 mmol/L 23-31 Chemistry (test 17 mmol/L 10-20 code=ANGP) Chemistry (test code=BUN) 15 mg/dL 8.4-25.7 Chemistry (test 0.79 mg/dL 0.7-1.3 code=CREATT) Chemistry (test Greater than 90 Reference Range for code=EGFRMDRD) Estimated GFR: Greater than 90 mL/min/1.73 m2NOTE:The MDRD equation has not been validated for use with theelderly (over 70 years of age), women, patientswith serious comorbid condition or persons with extremes ofbody size, muscle mass, or nutritional status. Chemistry (test 105 mg/dL 80-115 code=GLU-T) Chemistry (test code=CA) 9.2 mg/dL 7.8-10.44 Chemistry (test 0.3 mg/dL 0.2-1.2 code=TBILI-T) Chemistry (test code=TP) 7.7 g/dL 5.8-8.1 Chemistry (test code=ALB) 3.5 g/dL 3.4-4.8 Chemistry (test 4.2 g/dL 2.4-3.5 code=GLOB) Chemistry (test code=AG) 0.8 g/dL 1.2-2.2 Chemistry (test code=ALP) 172 U/L 40-150 Chemistry (test code=AST) 29 U/L 5-34 Chemistry (test code=ALT) 25 U/L 8-55 Chemistry - [id number] 09:46:00 Test Item Value Reference Range Comments Chemistry - Lactate (test code=LACTSEP-T) 1.0 mmol/L 0.5-2.2 [id number] 09:36:00 Test Item Value Reference Range Comments Hematology (test code=WBCT) 14.3 thou/uL 4.8-10.8 Hematology (test code=RBCT) 3.12 mill/uL 4.70-6.10 Hematology (test code=HGBT) 8.2 g/dL 14.0-18.0 Hematology (test code=HCTT) 25.9 % 42.0-52.0 Hematology (test code=MCV) 83.1 fL 78.0-98.0 Hematology (test code=MCH) 26.4 pg 27.0-31.0 Hematology (test code=MCHC) 31.7 g/dL 32.0-36.0 Hematology (test code=RDW) 13.8 % 11.5-14.5 Hematology (test code=PLTT) 852 thou/uL 130-400 Hematology (test code=MPV) 5.7 fL 7.4-10.4 Hematology (test code=%NEUT) 80.6 % 42.0-75.0 Hematology (test code=%LYMPH) 13.6 % 21.0-51.0 Hematology (test code=%MONO) 4.6 % 0.0-10.0 Hematology (test code=%EOS) 0.5 % 0.0-10.0 Hematology (test code=%BASO) 0.7 % 0.0-1.0 Hematology (test code=NEUT#) 11.5 thou/uL 1.40-6.50 Hematology (test code=LYMPH#) 2.0 thou/uL 1.20-3.40 Hematology (test code=MONO#) 0.7 thou/uL 0.11-0.59 Hematology (test code=EOS#) 0.1 thou/uL 0.0-0.7 Hematology (test code=BASO#) 0.1 thou/uL 0.0-0.[address] [facility]: DARA [facility] [employer] Phys: [place] [address] : 1955 Age: 63 SEX:M [phone] Exam Date: 04/14/19 Status: REG CLI Acct: [id number] Loc: PET Pt Unit #: [id number] Report #: [id number] CC: Kong Choi MD PET SCAN REPORT Order # Category/Exam [id number] PET/ PET W CT Skull to Mid Thigh ([id number]): . Results PET W CT Skull to Mid Thigh History: Lung cancer. C 34.02 Comparison: Chest radiograph April 01, 2019. CT chest March 17, 2019. Findings: PET/CT from skull tomid thigh was performed after the intravenous administration 11 mCi F-18 FDG. Large centrally necrotic mass involving the left upper lobe left hilum portions of the lingula. SUV max of the mass measures 14.2. There is a large left axillary soft tissue deposit has markedly increased in size now measuring up to 4.6 cm, previously 2 cm, with SUV max 14.7. Left cardiophrenic metastatic lymph node is similar in size with SUV max 8.8. Anterior chest wall soft tissue deposit just anterior to the xiphoid process has increased in size measuring 14 mm short axis with SUV max 13.7. Anteriorpararenal space adenopathy abutting the pancreatic body has become more confluent measuring up to 4.5 cm in size, previously 3 cm, with SUV max 13.1. Subcapsular deposits posterior cortex right kidney has SUV max of 12.8. There is also deposited along the medial margin of the spleen abutting the greater curvature the stomach with SUV max 12.8 with large subcapsular non- FDG avid fluid collection, likely necrosis. Metastatic lymph nodes along the left diaphragmatic pleura have increased insize measuring 2.3 cm short axis , previously less than 1 cm in size, with SUV max 10.6. Metastatic sigmoid mesenteric lymph nodes with central necrosis and possible fistulization with small bowel have SUV max 17.8. Moderate volume free fluid within the pelvis. Metastatic deposit along the right hepatocolic gutter appears the measured 2.2 cm in size, now 3 cm in size, with SUV max 13.2.Left acetabular osseous metastasis has SUV max 12.4. Soft tissue deposit adjacent to the right gluteus venancio fascia is similar in size with SUV max 3.7. Left femoral intertrochanteric metastatic deposit has SUV max 10.9. Impression: 1. Severe disease progression with size increase metastatic deposits throughout the chest abdomen and pelvis. 2. A mesenteric deposit left lower quadrant ofthe abdomen has internal gas is concerning to have either central necrosis or fistulization with thesmall bowel, as there is new increased fluid within the pelvis. Reported By: Harshil Menendez Electronically Signed: 2018 3:26 PM Reported By: HARSHIL MENENDEZ Electronically Signed Date/Time: 04/14/19 1526 Technologist: DAI Dictated Date/Time: 1508 Transcribed Date/Time:MRI Brain W [facility] Pt Name: DARA HOLMAN [address] Phys: Kong Choi MD [place] , [place] [address] : 1955 Age: 63 SEX:M [phone] Exam Date: Status: REG CLI Acct: [id number] Loc: PET Pt Unit #: [id number] Report #: [id number] CC: Kong Choi MD MRI REPORT Order # Category/ Exam [id number] MRI/MRI Brain W WO Con ([id number]): . Results BRAIN MRI WITH AND WITHOUT CONTRAST: Date: 04/14/19 HISTORY: Evaluate for intracranial metastasis. Lung cancer involving the left mainstem bronchus. COMPARISON:None. FINDINGS: No hemorrhage on the axial gradient echo sequence. Calvarium has a normal T1 marrow signal intensity. Midline brain parenchymal structures are unremarkable. With regards to the cerebrum, no mass, mass effect, or midline shift. Age- appropriate brain volume. Cortical borges-white matter differentiation is preserved. No evidence of hydrocephalus. There are no significant T2 or FLAIR white matter hyperintensities. Solitary T2 and FLAIR hyperintensity along the right lentiform nucleus and right weems radiata does not have any associated enhancement. Remote lacunar infarct is favored. Additional cavitary infarct involving the posterior right lentiform nucleus is noted. Adequate aeration of the paranasal sinuses and mastoid air cells. Postcontrast images do not demonstrate any abnormal enhancement with regards to the cerebrum. There is T2 and FLAIR hyperintensity along with sulcal effacement involving the cerebellar vermis and right cerebellarhemisphere. Postcontrast images demonstrate a peripherally enhancing lesion in the right cerebellar vermis measuring 1.2 cm mediolateral x 1.1 cm anterior posterior x 1.2 cm craniocaudal. There is an additional enhancing focus noted in the right cerebellum measuring 0.9 cm anterior posterior x 1.4 cm mediolateral x 0.9 cm craniocaudal. There are two smaller enhancing foci in the posterior medial right cerebellar hemisphere. IMPRESSION: Metastasis involving the posterior fossa as described above. There is associated edema without evidence of hydrocephalus. POS: TPC Reported By: Rehana Anaya MD Electronically Signed Date/Time: 04/14/19 1558 Technologist: EITAN Dictated Date/Time: 04/14/19 1442 Transcribed Date/Time: 04/14/19 1511XR [facility] Name: DARA HOLMAN [employer] Phys: [place] [address] : Age: 63 SEX:M [phone] Exam Date: 04/01/19 Status: REG [facility] Acct : [id number] Loc: [facility] Pt Unit #: [id number] Report #: [id number] CC: Cain Jean MD IMAGING SERVICES REPORT Order # Category/Exam [id number] RAD/XR Chest 1 View Portable ([id number]): . Results RADIOGRAPH CHEST 1 VIEW: DATE: 04/01/2019 TIME: 10:46 AM HISTORY: 63-year-old male status post MediPort placement. COMPARISON: 10:42 AM FINDINGS: Again noted is the right subclavian central venous catheter with distal tip overlying the lower portion of the right atrium. Now, that catheter has been trimmed to appropriate length, and is now connected to the access port. No pneumothorax. Right lung is clear. Right lateral costophrenic angle is sharp. No mediastinal shift. Left mainstem bronchus cut off. Total opacification of left lung remains. The appearance of the lungs is unchanged. IMPRESSION: 1. Completion of right subclavian implantable vascular access port placement. 2. Total opacificationof left hemithoracic cavity due to combination of large left pleural effusion and underlying total atelectasis of the entire left lung. 3. Left hilar mass occluding the left main stem bronchus. Reported By: Raj Thomas MD Electronically Signed Date/Time: 04/01/19 1140 Technologist: SERA Dictated Date/Time: 04/01/19 1136 Transcribed Date/Time:XR [facility] Name: DARA HOLMAN [employer] Phys: [place] [address] : 1955 Age: 63 SEX:M [phone] Exam Date: 04/01/19 Status: DEP [facility] Acct: [id number] Loc: [facility] Pt Unit #: [id number] Report #: [id number] CC: Cain Jean MD IMAGING SERVICES REPORT Order # Category/Exam [id number] RAD/XR Chest 1 View Portable ([id number]): . Results FRONTAL RADIOGRAPH CHEST: DATE: 04/01/2019. COMPARISON: None. HISTORY: Mediport placement. FINDINGS: This study is performed 04/01/2019 at 10:42 AM. Catheter tubing associated with a right-sided Mediport extends into the region of the right atrium. The Mediport tubing does not appear attached to the reservoir at this time. There is complete opacification of the left hemithorax with abrupt cut off of the left mainstem bronchus suggesting a central obstructing lesion. IMPRESSION: Complete opacification of left hemithorax,likely on the basis of an obstructing left hilar lesion. Catheter tubing for Mediport as above.Transcribed Date/Time: 04/01/2019 11:43 AM Reported By: Florentin Dolan MD Electronically Signed Date/Time: 04/01/19 1448 Technologist: SERA Dictated Date/Time: 04/01/19 1109 Transcribed Date/Time:NM [facility] Pt Name: DARA HOLMAN [employer] Phys: [place] [address] : 1955 Age: 63 SEX:M [phone] Exam Date: Status: ADM IN Acct: [id number] Loc: T4-B Pt Unit #: [id number] Report #: [id number] CC: Elkin Barroso MD Nugent, Julie APRN NUCLEAR MEDICINE REPORT Order # Category/Exam [id number] NM/NM Bone Scan STANDARD ( [id number]): . Results WHOLE BODY BONE SCAN: HISTORY: Lung cancer RADIOPHARMACEUTICAL: 30 mCi technetium 99m-MDP injected intravenously COMPARISON: None CORRELATION: CT chest, abdomen and pelvis of 03/14/2019 FINDINGS: There is scattered degenerative activity in the appendicular skeleton. No other abnormal areas of tracer localization are seen in the skeleton to suggest metastatic disease. Tracer excretion through the kidneys is within normal limits. IMPRESSION: No scintigraphic evidence of osseous metastatic disease. Reported By: Meliton Prajapati MD Electronically Signed Date/Time: 03/18/19 1340 Technologist : CHRISTOPHER Dictated Date/Time: 03/18/19 1336 Transcribed Date/Time:CTA Angio Chest W WO [facility] Pt Name: DARA HOLMAN [employer] Phys: ANASTACIO Talbot [place] [address] : Age: 63 SEX:M [phone] Exam Date: 03/17/19 Status: ADM IN Acct : [id number] Loc: T4-B Pt Unit #: [id number] Report #: [id number] CC: ANASTACIO Talbot David, MD CAT SCAN REPORT Order # Category/Exam [id number] CT/CTA Angio Chest W WO Con ([id number]): . Results CTA Angio Chest W WO Con HISTORY: Tachycardia, chest pain, hypoxemia COMPARISON: 03/14/2019 study FINDINGS: There is been a definitechange in the appearance of the left chest. Loculated left pleural effusion is definitely increased as compared to the prior examination. The large necrotic left hilar mass is demonstrated largest which are difficult to define due to associated postobstructive change involving the left upper lobe. There is complete obliteration of the left upper lobe bronchus. The left upper lobe pulmonary arteryis also occluded at its origin. Minimal residual aerated lung seen within the left upper lobe. Thereis also worsening collapse in the left lower lobe. There is a segment of the left lower lobe raucous which is completely obliterated. A small right pleural effusion is now present. Subsegmental atelectatic change in the right lung base is seen. There is good pulmonary artery opacification and no CT evidence for pulmonary embolus. A large splenic mass is again identified. The other findings described on the previous report appear stable. IMPRESSION: 1. Significant change in the appearance of the left chest with increasing left- sided effusion now with essentially complete collapse of the left upper lobe and also consolidation changes of the left lower lobe with a large necrotic left hilar lung mass again seen. 2. No CT evidence of pulmonary embolus. Reported By: Bryce Malone MDElectronically Signed Date/Time: 03/17/192152 Technologist: EVELIN Dictated Date/Time: 03/17/192145 Transcribed Date/Time:CT Chest Abd Pelvis W ConSt [facility] Pt Name: DARA HOLMAN [facility] [address] Phys: [place] [address] : 1955 Age: 63 SEX:M [phone] Exam Date: Status: REG ER Acct: [id number] Loc: [facility] Pt Unit #: [id number] Report #: [id number] CC: KLAUS MENJIVAR MD CAT SCAN REPORT Order # Category/Exam [id number] CT/CT Chest Abd Pelvis W Con ([id number]): . Results CT Chest Abd Pelvis W Con History: Abdominal pain. Bloody stools. Cough. Comparison: Radiograph same day Findings: Large left perihilar mass with central necrosis and mediastinal invasion measuring 9.3 x 5.8 x 10 cm. There is attenuation of theleft main pulmonary artery with occlusion of the left upper lobe pulmonary arteries. Lingular pulmonary arteries. Attenuated. Small left effusion. There is lymphangitic thickening in the left upper lobe with nodularity. Same is true for the lingula. Endobronchial debris left lower lobe. Right lung relatively clear. Abnormal soft tissue mass along the parietal pericardium measuring 1.3 cm.Post obstructive pneumonitis within the lingula. There is tumor extension into the left subclavian vein. No suspicious osteolytic or osteoblastic lesions. Liver is unremarkable. Multiplemasses of the spleen, largest measuring up to 8.1 cm. This does cause mass effect upon the left kidney and adrenal gland. Small volume perihepatic ascites and free fluid within the pelvis. Omental nodule is noted just anterior to the gallbladder fundus measuring 2.7 cm. There are mesenteric nodules of the small bowel mesentery measuring up to 4.6 cm. Subcapsular mass of the right posterior kidney with peripheral enhancement measures 1.9 cm. Soft tissue mass in the left axilla with central necrosis measures 2 cm abutting the subscapularis muscle. Small soft tissue mass sits along the fascia of the right gluteus venancio muscle axial image 123 measuring 1.3 cm. Impression: 1. Large centrally necrotic left hilar mass with mediastinal invasion and lymphangitic spread of tumor in the lingula and left upper lobe. Bronchoscopy is warranted. 2. Extensive soft tissue metastasis below the diaphragm including the omentum , subcapsular right kidney, spleen, and mesentery. 3. Soft tissue masses along the right gluteus venancio fascia and left subscapularis muscle. 4. Extension of tumor into the left subclavian vein, partial tumor thrombus. 5. Parietal pericardial studding. 6.Attenuation of the left main pulmonary artery with obliteration left upper lobe pulmonary artery andextensive narrowing of the lingular pulmonary artery. 7. Malignant left pleural effusion. Reported By: Harshil Menendez Electronically Signed: 2018 11:10 AM Reported By: HARSHIL MENENDEZ Electronically Signed Date/Time: 03/14/19 1110 Technologist: MARQUEZ Dictated Date/Time: 1059 Transcribed Date/Time:XR Chest Pa Lat STANDARDSt [facility] Pt Name: DARA HOLMAN [address] [place] [address] Phys: [place] [address] : 1955 Age: 63 SEX:M [phone] Exam Date: 03/14/19Status: ADM IN Acct: [id number] Loc: [facility] Pt Unit #: [id number] Report #: [id number] CC:KLAUS MENJIVAR MD, David, MD IMAGING SERVICES REPORT Order # Category/Exam [id number] RAD/XR Chest Pa Lat STANDARD ([id number]): . Results T PA AND LATERAL VIEWS CHEST: HISTORY: Hemoptysis, travel, weight loss. Heavy smoker. FINDINGS: The heart sizeis normal. There is a large mass in the left upper lung. No pneumothoraces or pleural effusions are seen. IMPRESSION: Findings suspicious for left-sided lung malignancy. Further evaluation with contrast-enhanced CT scan is recommended. CODE T POS: TPC Reported By: Meliton Prajapati MD Electronically Signed Date/Time : 03/14/19 1155 Technologist: Dictated Date/Time: 03/14/19 1035 Transcribed Date/Time: 03/14/19 1131
[2019-07-07] MEDS ORDERED: NA CHLORIDE 0.9% 500 ML ONE ×2 (08:56→12:17)
[2019-07-07] MEDS ORDERED: ALPRAZOLAM 0.5 MG TABLET PO ONE (10:30)
[2019-07-07 10:44] VITALS: BMI 16.6
[2019-07-07 13:12] VITALS: O2SAT 100
[2019-07-07 16:51] VITALS: BP 102/52; TEMP 99.1
[2019-07-07 17:00] LABS: Hematocrit 29.1 % (39.6-49.0)
== END 2019-07-07 16:49 | disposition home or self-care (01) ==
LOC: DS 07:58
PROVIDERS: ATTEND Internal Medicine Medical Oncology
DX: C34.90 Malignant neoplasm of unspecified part of unspecified bronchus or lung (principal); R64 Cachexia; Z68.1 Body mass index [BMI] 19.9 or less, adult; D63.0 Anemia in neoplastic disease
CPT/HCPCS: 36415; 86900; 86850; 86901; 85018; 85014; 36430; P9016 ×2; J7040 ×2

== ENCOUNTER 2019-07-09 07:08 | Emergency (ER) | payer OTHER ==
--- OUTSIDE RECORDS SUMMARY | 2019-07-09 07:13 | XMS REPORT ---
:1955 Author Organization [facility] Address [address] [place] [address] Dr. Watts [address] [place] [id number] Care Team Providers Name Role Phone BrianneMera JULIO CESAR Unavailable Unavailable Cain Jean Unavailable Unavailable Elkin Barroso Unavailable Unavailable Problems This patient has no known problems. Allergies, Adverse Reactions, Alerts This patient has no known allergies or adverse reactions. Medications This patient has no known medications. Results Test Description Test Time Test Comments Text Results Atomic Results Result Comments [id number] 2019-04-11 SURGICAL 12:14:00 [facility] PATHOLOGY, [address] [place], [place] [id number] LEVEL V Laboratory Printed: 04/11/[address] [place] [address] DAEMPathology Page : 1 Patient: DARA HOLMAN Birthdate: 1955 Age/Sex: 63/M Spec#: [id number]: Cain Jean MD Specimen Date: Received Date: 03/21/19 Specimen: LYMPH NODE CLINICAL DIAGNOSIS smoker, lung mass ADDENDUM Addendum # 2 Entered: 04/11/19-1245 The paraffin block was sent to [facility] for the Lung Panel. Results are reported asfollows: PD-L1 22C3 FDA ( KEYTRUDA) FOR NSCLC: HIGH EXPRESSIONTumor Proportion Score: 60%; Intensity: 3+ BRAF Mutation Analysis: NOT DETECTED. EGFR Mutation Analysis: NOT DETECTED. ALK FISH: NOT DETECTED (NEGATIVE). ROS1 FISH: NOT DETECTED (NEGATIVE). The reports from [employer] have been scanned into the patient's EMR and faxedto Dr. Choi.Pathologist:Harshil Dwyer MD Entered by: 04/11/19 - 1045 LAB.SHAHZAD Patient: DARA HOLMAN Re07/21Loc: T4-B MR#: [id number] CONTINUED ON NEXT PAGE Dis: Sta: DIS IN [place] [id number] Laboratory Printed: 04/11/[address] [place] [address] [facility] Page : 2 Patient: DARA HOLMAN [id number] (Continued) ADDENDUM (Continued) Addendum Signed (Electronically Signed)_ Harshil Dwyer MD 04/11/19 Addendum # 1 Entered: 03/25/197381 This addendum is issued to report the results of additional immunohistochemical stains. The following immunohistochemical stains are performed at [facility] with adequate controlsand interpreted by Florentin Lloyd [...] TTF-1. Pathologist:Florentin Lloyd MD Entered by: 03/25/19 4146 EDMAR Addendum Signed (Electronically Signed)_ Florentin Lloyd MD 03/25/19 PATHOLOGIC DIAGNOSIS Lymph node, left axilla, excisional biopsy: - Metastatic carcinoma. Comment: This patient has a prior lung and cytology specimen that showed some necrosis withno viable tumor (cases [id number] and [id number]). The lymph node shows evidence of ametastatic poorly differentiated carcinoma. A battery of immunohistochemical stains did not Patient: DARA HOLMAN Re07/21Loc: T4-B MR#: [id number] CONTINUED ON NEXT PAGE Dis: Sta: DIS IN [place] [id number] [facility] [place] [address] Laboratory Printed: 04/11/19 1210 [facility] DAEMPathology Page : 3 Patient: DARA HOLMAN [id number] (Continued) PATHOLOGIC DIAGNOSIS (Continued) definitively specify where [...] MD Entered by:03/23/19 - 1532 EDMAR PROCEDURES: 73296, 76459, ALK FISH 62396, 91494/2, 23131/22, ROS1 FISH 59567, 30719 BRAF, 82956 EGFR GROSS DESCRIPTION A. LYMPH NODE BIOPSY LEFT AXILLARY The specimen is received in 10% formalin, and is labeled with the patient's name and "leftaxillary node". The specimen consists of a pink-pham nodule measuring 2.8 x 2.5 x 1.6 cm ingreatest dimensions. Upon sectioning it reveals a pink to white-pham surface.Pasteurizer Helper sections are submitted in two cassettes, A1-2. Dictated by: EDUIN NETTLES Entered by: 03/21/19 - 163[facility].YGP MICROSCOPIC DESCRIPTION The lymph node is completely replaced by a metastatic carcinoma with areas of necrosis.There are some glandular structures seen. The tumor cells are large with irregular nuclearcontours, abundant eosinophilic cytoplasm, and visible nucleoli. Mitotic figures are easilyseen. Patient: DARA HOLMAN Re03/14/19Loc: T4-B MR#: [id number] CONTINUED ON NEXT PAGE Dis: 03/21/19Sta: DIS IN [address] [address] Laboratory Printed: 04/11/19 6743 [facility] DAEMPathology Page : 4 Patient: DARA HOLMAN [id number] (Continued) MICROSCOPIC DESCRIPTION (Continued) The following immunohistochemical [...] Patient: DARA HOLMAN Re03/14/19Loc : T4-B MR#: [id number] END OF REPORT Dis: 03/21/19Sta: DIS IN Packed 2019-04-08 [id number] OP [facility] TFUSE 04/08/19 0936 [id number] OP Cells - 15:39:00 [facility] TFUSE 1216 Leukoreduce d Type Screen 2019-04-08 15:39:00 Test Item Value Reference Range Comments Blood Type Rh (test code=BT) O POSITIVE Antibody Screen (test code=ABSC) NEGATIVE Received Blood Or Been w/in Past 90 Days? UNKNOWNCulture, Lsehq5974-61- 19 08:04:00 Test Item Value Reference Range Comments Culture, Blood (test code=BC) NG5 Rkynbhfxz6208-85-68 06:30:00 Test Item Value Reference Range Comments [...] code=GLU-T) Chemistry (test code=CA) 8.1 mg/dL 7.8-10.44 Siosinyzqk5201-12-29 06:06:00 Test Item Value Reference Range Comments [...] 0.0-0.7 Hematology (test code=BASO#) 0.0 thou/uL 0.0-0.2 Lkxdwifke8373-94-17 06:26:00 Test Item Value Reference Range Comments [...] 5-34 Chemistry (test code=ALT) 13 U/L 8-55 Itadqretwe5076-97-62 06:06:00 Test Item Value Reference Range Comments [...] code=BASO#) 0.0 thou/uL 0.0-0.2 Packed Cells - Cjpymrlqfhut1057-47-49 03:58:[id number] OP [facility] TFUSE 03/18/19 1343 [id number] OP [facility] TFUSE 03/18/19 1645Type Ytjlei1561-97- 17 03:58:00 Test Item Value Reference Range Comments Blood Type Rh (test code=BT) O POSITIVE Antibody Screen (test code=ABSC) NEGATIVE Received Blood Or Been w/in Past 90 Days? [id number] SURGICAL PATHOLOGY, LEVEL IM2691-55-43 14:53:00 [place] [id number] Laboratory Printed: 03/18/19 1453 BKG DAEMPathology Page: 1 Patient : DARA HOLMAN Birthdate: 1955 Age/Sex: 63/M Spec#: [id number] : Bebo Gandhi MD Specimen [...] This case is correlated with cytology case [id number] which showedsimilar findings. Pathologist:Florentin Lloyd MD Entered by:03/18/19812 EDMAR PROCEDURES: 41126, 06416, 50855 GROSS DESCRIPTION A. LUNG BIOPSY LEFT MAIN STEMThe specimen is received in 10% formalin, and is labeled with the patient's name and "leftmain stem bronchus biopsy." The specimen consists of multiple pink-pham soft tissuefragments measuring 0.6 cm in aggregate. The specimen is entirely submitted in one Patient: DARA HOLMAN Re03/14/19Loc: T4-B MR# : [id number] CONTINUED ONNEXT PAGE Dis: Sta: ADM IN [address] [address] Laboratory Printed: 03/18/19 [facility]8 [facility] DAEMPathology Page: 2 Patient: DARA HOLMAN [id number] (Continued) GROSS DESCRIPTION (Continued) cassette. Dictated by: Latrice Galvez Entered by: - 133[facility] MICROSCOPIC DESCRIPTION A microscopic examination was performed to arrive at the diagnostic conclusion reported.PAS/Alcian blue stain performed with adequate control is negative for fungi. It alsohighlights acidic mucin associated with benign respiratory epithelium. Signed (Electronically Signed) ___ Florentin Lloyd MD 03/18/19 Patient: DARA HOLMAN Re03/14/19Loc: T4-B MR#: [id number] END OF REPORT Dis: Sta: ADM [id number] SURGICAL PATHOLOGY, LEVEL BC8044-50-18 14:52:[address] [address] Laboratory Printed: 03/18/19 5669 [facility] DAEMPathology Page: 1 Patient : DARA HOLMAN Birthdate: 1955 Age/Sex: 63/M Spec#: [id number] : Bebo Gandhi MD Specimen [...] identified.This case is correlated with surgical case [id number]. Pathologist: Florentin Lloyd MD Entered by:03/18/191449 EDMAR PROCEDURES: 80379 , 80498, 89883, 25281, 38980/5 GROSS DESCRIPTION A. BRONCHIAL BRUSHINGS Left Main Stem Received 1 brush tip in 15 m CytoLyt.Prepared 1 ThinPrep slide. Patient: DARA HOLMAN Re03/14/19Loc: T4-B MR#: [id number] CONTINUED ON NEXT PAGE Dis: Sta:ADM IN [place] [id number] [facility] [place] [address] Laboratory Fax: Printed: 03/18/19 7667 [facility]: 2 Patient: DARA HOLMAN [id number] (Continued) GROSS DESCRIPTION (Continued) B. BRONCHIAL WASHINGS Received 60 ml bloody fluid containing CytoLyt. Prepared 1 ThinPrep slide and a cell block. Dictated by: Zhanna CHERY ([facility]) Entered by: 03/16/19 - 9092 [facility] MICROSCOPIC DESCRIPTION A microscopic examination was [...] 03/18/19 Patient: DARA HOLMAN Re03/14/19Loc: T4-B MR#: [id number] END OF REPORT Dis: Sta: ADM WLVmxhszpfdw8799-72-13 05:52:00 Test Item Value Reference Range Comments [...] (test code=BASO#) 0.0 thou/uL 0.0-0.2 Chemistry - Belwi2291-41-22 18:47:00 Test Item Value Reference Range Comments Chemistry - Urine (test code=URNA) 184 mmol/L Not Available Chemistry - Urine (test code=URK) 26.0 mmol/L Chemistry - Bvfra5083-51-34 18:43:00 Test Item Value Reference Range Comments Chemistry - Urine (test code=UROSMO) 551 mOsm/kg 300-900 Chemistry - Eabllbpk8736-40-90 13:43:00 Test Item Value Reference Range Comments Chemistry - Specials (test code=OSMO) 269 mOsm/kg 280-295 Qdcnedklb5025-35-06 09:51:00 Test Item Value Reference Range Comments [...] code=GLU-T) Chemistry (test code=CA) 7.8 mg/dL 7.8-10.44 Nrvckbcoff0597-42-21 09:46:00 Test Item Value Reference Range Comments [...] Hematology (test code=BASO#) 0.0 thou/uL 0.0-0.2 Respiratory Xcxzxmp0272-21-67 15:41:00 Test Item Value Reference Range Comments Respiratory Culture (test code=RESPC) GS Respiratory Culture (test code=RESPC1) MO NRF Respiratory Culture (test code=RESPC1) NF Gtrmkppuuy1670-13-33 13:41:00 Test Item Value Reference Range Comments [...] Hematology (test code=PCOMMENT) Appears Increased Tyree 03/16/19 0900.Unuinzqgw2324-82-05 13:21:00 Test Item Value Reference Range Comments [...] code=CA) 8.3 mg/dL 7.8-10.44 Tyree 03/16/19 0900.Culture, Vhsfn6035-90-38 11:01:00 Test Item Value Reference Range Comments Culture, Urine (test code=URC) NG48 Wquvonbm0617-13-89 12:17:00 Test Item Value Reference Range Comments Accuchek (test code=ACU) 99 mg/dL 70-110 Cofliddvw1488-74-89 06:48:00 Test Item Value Reference Range Comments [...] code=GLU-T) Chemistry (test code=CA) 8.3 mg/dL 7.8-10.44 Xzarqksrfk4717-25-85 06:29:00 Test Item Value Reference Range Comments [...] Hematology (test code=BASO#) 0.0 thou/uL 0.0-0.2 Type Opfqbl2943-22-55 01:08:00 Test Item Value Reference Range Comments Blood Type Rh (test code=BT) O POSITIVE Antibody Screen (test code=ABSC) NEGATIVE Received Blood Or Been w/in Past 90 Days? UNKNOWNReceived Blood Or Been w/in Past 90 Days? NOScheduled Surgery Date: NO SURGERYIs Surgery Date Greater than 7 days from now? NOPacked Cells - Iwpeymwkssyd1341-59-51 01:08 :[id number] [facility] TFUSE 3124Rxskqxzkda6810-93-44 13:19:00 Test Item Value Reference Range Comments Hematology (test code=HGBT) 6.5 g/dL 14.0-18.0 Hematology (test code=HCTT) 20.1 % 42.0-52.0 Nfrdtmqgvk0427-38-45 13:15:00 Test Item Value Reference Range Comments [...] Seen HPF None Seen Urine Source: Urine AesttwAchyxeowxp3760-20-70 13:02:00 Test Item Value Reference Range Comments Hematology (test code=MALT) None Seen None Seen A pathologist will review all smears. Speciation will beperformed by the [facility]. Hematology (test Negative for malaria or code=MALPATH) Aaron GONZALEZ M.D.cpt; 08432 Retype Verify-Blood Type Mb3667-18-86 11:41:00 Test Item Value Reference Range Comments Blood Type Rh (test code=BT) O POSITIVE Occult Blood, Stool YMAXBFITLQ8301-54-93 10:27:00 Test Item Value Reference Range Comments Occult Blood, Stool DIAGNOSTIC (test code=OCCSTD) IFOB Occult Blood, Stool DIAGNOSTIC (test code=OCCSTD1) P Lanvcktve4421-52-59 09:51:00 Test Item Value Reference Range Comments [...] (test code=ALT) 25 U/L 8-55 Chemistry - Jeoomeg6173-39-45 09:46:00 Test Item Value Reference Range Comments Chemistry - Lactate (test code=LACTSEP-T) 1.0 mmol/L 0.5-2.2 Gmidpnzeho9457-84-39 09:36:00 Test Item Value Reference Range Comments [...] 0.0-0.[address] [facility] Name[facility] DARA HOLMAN [email or web address] Phys: [place] [address] : 1955 Age: 63 SEX:M [phone] Exam Date: 04/14/19 Status: REG CLI Acct: [id number] Loc: PET Pt Unit #: [id number] Report #: [id number] CC: Kong Choi MD PET SCAN REPORT Order # Category/Exam [id number] PET/ PET W CT Skull to Mid Thigh ([id number]): . Results PET W CT Skull to [...] Dictated Date/Time: 1508 Transcribed Date/Time:MRI Brain W [facility] Pt Name: DARA HOLMAN [address] Phys: Kong Choi MD [place] , [place] [address] : 1955 Age: 63 SEX:M [phone] Exam Date: Status: REG CLI Acct: [id number] Loc: PET Pt Unit #: [id number] Report #: [id number] CC: Kong Choi MD MRI REPORT Order # Category/ Exam [id number] MRI/MRI Brain W WO Con ([id number]): . Results BRAIN MRI WITH AND WITHOUT [...] Rehana Anaya MD Electronically Signed Date/Time: 04/14/19 1553 Technologist: EITAN Dictated Date/Time: 04/14/19 1442 Transcribed Date/Time: 04/14/19 1511XR Chest [facility] Pt Name: DARA HOLMAN [email or web address] Phys: [place] [address] : Age: 63 SEX:M [phone] Exam Date: 04/01/19 Status: REG [facility] Acct : [id number] Loc: [facility] Pt Unit #: [id number] Report #: [id number] CC: Cain Jean MD IMAGING SERVICES REPORT Order # Category/Exam [id number] RAD/XR Chest 1 View Portable ([id number]): . Results RADIOGRAPH CHEST 1 VIEW: DATE: [...] 04/01/19 1136 Transcribed Date/Time:XR [facility] Pt Name: DARA HOLMAN [email or web address] Phys: [place] [address] : 1955 Age: 63 SEX:M [phone] Exam Date: 04/01/19 Status: DEP [facility] Acct: [id number] Loc: [facility] Pt Unit #: [id number] Report #: [id number] CC: Cain Jean MD IMAGING SERVICES REPORT Order # Category/Exam [id number] RAD/XR Chest 1 View Portable ([id number]): . Results FRONTAL RADIOGRAPH CHEST: DATE: 04/01/2019. [...] 04/01/19 1109 Transcribed Date/Time:NM [facility] Name: DARA HOLMAN [email or web address] Phys: [place] [address] : 1955 Age: 63 SEX:M [phone] Exam Date: Status: ADM IN Acct: [id number] Loc: T4-B Pt Unit #: [id number] Report #: [id number] CC: Elkin Barroso MD Nugent, Julie APRN NUCLEAR MEDICINE REPORT Order # Category/Exam [id number] NM/NM Bone Scan STANDARD ( [id number]): . Results WHOLE BODY BONE SCAN: HISTORY: [...] 1336 Transcribed Date/Time:CTA Angio Chest W WO [facility] Pt Name: DARA HOLMAN [email or web address] Phys: ANASTACIO Talbot [place] [address] : Age: 63 SEX:M [phone] Exam Date: 03/17/19 Status: ADM IN Acct : [id number] Loc: T4-B Pt Unit #: [id number] Report #: [id number] CC: ANASTACIO Talbot David, MD CAT SCAN REPORT Order # Category/Exam [id number] CT/CTA Angio Chest W WO Con ([id number]): . Results CTA Angio Chest W WO [...] Transcribed Date/Time:CT [facility] [address] Phys: [place] [address] : 1955 Age: 63 SEX:M [phone] Exam Date: Status: REG ER Acct: [id number] Loc: [facility] Pt Unit #: [id number] Report #: [id number] CC: KLAUS MENJIVAR MD CAT SCAN REPORT Order # Category/Exam [id number] CT/CT Chest Abd Pelvis W Con ([id number]): . Results CT Chest Abd Pelvis W [...] 1059 Transcribed Date/Time:XR Chest Pa Lat [facility] Pt Name: DARA HOLMAN [address] [place] [address] Phys: [place] [address] : 1955 Age: 63 SEX:M [phone] Exam Date: 03/14/19Status: ADM IN Acct: [id number] Loc: [facility] Pt Unit #: [id number] Report #: [id number] CC:KLAUS MENJIVAR MD, David, MD IMAGING SERVICES REPORT Order # Category/Exam [id number] RAD/XR Chest Pa Lat STANDARD ([id number]): . Results T PA AND LATERAL VIEWS [...] Dictated Date/Time: 03/14/19 1035 Transcribed Date/Time: 03/14/19 1134
[2019-07-09 08:12] LABS: Absolute Lymphocytes (CBC) 0.7 K/uL (0.7-4.9); Basophils % 0.4 % (0-1.3); Hematocrit 30.4 % (39.6-49.0); MPV 7.8 fL (7.6-11.3); RBC Red Blood Cell Count 3.41 M/uL (4.33-5.43)
[2019-07-09 08:13] LABS: Protime INR 1.24
[2019-07-09 08:26] LABS: ALT/SGPT 12 U/L (12-78); AST/SGOT 23 U/L (15-37); Albumin 1.9 g/dL (3.4-5.0); Alkaline Phosphatase 96 U/L (45-117); BUN Blood Urea Nitrogen 27 mg/dL (7-18); Bicarbonate 33 mmol/L (21-32); Bilirubin Direct 0.2 mg/dL (0-0.2); Bilirubin Total 0.4 mg/dL (0.2-1.0); Glucose Level 122 mg/dL (74-106); Magnesium 2.3 mg/dL (1.8-2.4); NT PRO-BNP 6173 pg/mL (<125); Potassium 3.8 mmol/L (3.5-5.1); Protein, Total 7.2 g/dL (6.4-8.2); Sodium Level 137 mmol/L (136-145); Troponin (Emerg Dept Use Only) 0.24 ng/mL (0.0-0.045)
[2019-07-09] MEDS ORDERED: NA CHLORIDE 0.9% 500 ML ONE (08:33)
[2019-07-09] MEDS ORDERED: ASPIRIN 81 MG CHEWABLE TABLET ONE (08:53)
[2019-07-09] MEDS ORDERED: FENTANYL CITR 100 MCG/2 ML ONE (08:53)
[2019-07-09] MEDS ORDERED: ENOXAPARIN 40 MG/0.4 ML SQ ONE (08:54)
[2019-07-09] MEDS ORDERED: ENOXAPARIN 60 MG/0.6 ML SQ ONE (08:56)
--- NOTE | 2019-07-09 09:34 | RAD REPORT ---
EXAM DESCRIPTION: CT - Chest For Pe Angio - 07/09/2019 9:02 am CLINICAL HISTORY: sob COMPARISON: June 07, 2019 TECHNIQUE: Dynamically enhanced axial 3 mm thick images of the chest were obtained during administra tion of <100> mL Isovue 370 IV contrast. Coronal and oblique reconstruction images were generated and reviewed. Exam utilizes a protocol for optimal evaluation of pulmonary arterial tree. Maximum intensity projections 3D imaging was utilized All CT scans are performed using dose optimization technique as appropriate and may include automated exposure control or mA/KV adjustment according to patient size. FINDINGS: Large left upper lobe mass is again demonstrated which encases and occludes the left upper lobe pulmonary artery. Left lower lobe pulmonary arteries are encased by the mass. The mass abuts th e aortic arch and extends into the mediastinum and left hilum. Thrombus is again demonstrated within the left brachiocephalic vein is present. Large left axillary mass is again demonstrated only partially included in the field of view. Large le ft upper quadrant abdominal mass again demonstrated only partially included in the field of view. 4 centimeter mass is present within the subcutaneous tissues anterior to the sternum. Small bilateral pleural effusions are present. Left lower lobe atelectasis is seen Diffuse edema is present throughout the subcutaneous tissues IMPRESSION: Large left upper lobe mass consistent with bronchogenic carcinoma. The mass occludes the left pulmonary artery and encases left pulmonary artery. Pulmonary emboli are not visualized Left axillary, left upper quadrant anterior subcutaneous masses consistent with metastases
--- NOTE | 2019-07-09 09:47 | RAD REPORT ---
EXAM DESCRIPTION: Enrique Single View07/09/2019 7:45 am CLINICAL HISTORY: Chest pain COMPARISON: June 07, 2019 FINDINGS: Large left lung mass with left lung atelectasis is again demonstrated Right lung appears clear of acute infiltrate Central venous line has its tip in right atrium
--- NOTE | 2019-07-09 10:05 | ER ---
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 Transition of care: patient was not received from another setting of care. Onset of symptoms was July 08, 2019. Risk Assessment: Do you want to hurt yourself or someone else? Patient reports no desire to harm self or others. Initial Sepsis Screen: Does the patient meet any 2 criteria? No. Patient's initial sepsis screen is negative. Does the patient have a suspected source of infection? No. Patient's initial sepsis screen is negative. Care prior to arrival: None. 07:20 Method Of Arrival: Wheelchair em 07:25 Acuity: ROMY 3 iw Historical: - Allergies: 07:20 Corticosteroids (Glucocorticoids); em - Home Meds: 07:20 Fentanyl Patch Topical [Active]; Hydrocodone-Acetaminophen Oral [Active]; Iron CR Oral em [Active]; Vitamin B-12 Oral [Active]; - PMHx: 07:20 GERD; Lung CA; current chemo; em - PSHx: 07:20 None; em - Immunization history:: Adult Immunizations not up to date. - Social history:: Smoking status: Patient/guardian denies using tobacco, but has a distant history of tobacco abuse. - Ebola Screening: : Patient negative for fever greater than or equal to 101.5 degrees Fahrenheit, and additional compatible Ebola Virus Disease symptoms Patient denies exposure to infectious person Patient denies travel to an Ebola-affected area in the 21 days before illness onset No symptoms or risks identified at this time. Screenin:20 Abuse screen: Denies threats or abuse. Nutritional screening: No deficits noted. em Tuberculosis screening: No symptoms or risk factors identified. Fall Risk None identified. Assessment: 07:20 General: Appears in no apparent distress. ill, cachectic, Behavior is calm, em cooperative, Reports fever for 12-24 hours. Pain: Complains of pain in right ankle, left lateral ankle and left medial ankle Pain currently is 9 out of 10 on a pain scale. Pain began 1 day ago. Neuro: Level of Consciousness is awake, alert, obeys commands, Oriented to person, place, time, situation, Appropriate for age. Cardiovascular: Capillary refill < 3 seconds Patient's skin is warm and dry. Rhythm is sinus rhythm. Respiratory: Reports shortness of breath at rest on exertion Airway is patent Respiratory effort is even, unlabored, Respiratory pattern is regular, symmetrical, Breath sounds are diminished bilaterally. GI: Patient currently denies nausea. Derm: Skin is intact, is fragile, is thin, Skin is pale. Musculoskeletal: Capillary refill < 3 seconds, Range of motion: intact in all extremities, Swelling present in right ankle, left lateral ankle and left medial ankle. 07:30 Reassessment: placed on NC at 2 LPM, reports he has been wearing O2 at home since em diagnosed with lung CA. 07:45 Reassessment: Patient appears in no apparent distress at this time. I agree with above iw assessment by Cullen Aden LVN. 08:36 Reassessment: request something for pain, pt family member states he took a 15 mg em morphine tablet about 1.5 hours ago, provider notified, new medication orders received. 08:55 Reassessment: pt wheeled to CT via stretcher. em 09:04 Reassessment: family reports pt has a fentanyl patch on of 50 mcg that was placed em yesterday, provider notified, will hold fentanyl pain medication. 10:07 Reassessment: Patient appears in no apparent distress at this time. Patient and/or em family updated on plan of care and expected duration. Pain level reassessed. Patient is alert, oriented x 3, equal unlabored respirations, skin warm/dry/pink. 10:59 Reassessment: Patient appears in no apparent distress at this time. US at bedside. em 12:20 Reassessment: reports pain in legs, provider notified, new medication orders received. em 13:30 Reassessment: Patient appears in no apparent distress at this time. Patient and/or em family updated on plan of care and expected duration. Pain level reassessed. lunch tray given, pending transfer Patient states symptoms have improved. 15:48 Reassessment: Patient appears in no apparent distress at this time. Patient and/or em family updated on plan of care and expected duration. Pain level reassessed. Patient is alert, oriented x 3, equal unlabored respirations, skin warm/dry/pink. 15:56 Reassessment: Patient appears in no apparent distress at this time. report given to em EMS. Vital Signs: 07:20 BP 98 / 83; Pulse 81; Resp 20; Temp 98.2(O); Pulse Ox 99% on R/A; Weight 45.36 kg (R); em Height 5 ft. 6 in. (167.64 cm); Pain 9/10; 08:04 BP 100 / 63; Pulse 74; Resp 14; Pulse Ox 100% on 2 lpm NC; em 10:08 BP 103 / 68; Pulse 86; Resp 22; Pulse Ox 100% on 2 lpm NC; em 11:46 BP 95 / 59; Pulse 77; Resp 20; Pulse Ox 100% on 2 lpm NC; Pain 9/10; em 12:30 BP 106 / 68; Pulse 74; Resp 22; Pulse Ox 99% on 2 lpm NC; Pain 7/10; em 13:30 BP 112 / 59; Pulse 74; Resp 18; Pulse Ox 100% on 2 lpm NC; em 14:30 BP 113 / 74; Pulse 79; Resp 20; Pulse Ox 100% on 2 lpm NC; em 15:30 BP 116 / 71; Pulse 83; Resp 20; Pulse Ox 100% on 2 lpm NC; em 07:20 Body Mass Index 16.14 (45.36 kg, 167.64 cm) em ED Course: 07:11 Patient arrived in ED. mr 07:14 Cullen Aden LVN is Primary Nurse. em 07:15 Logan Mckinnon NP is PHCP. pm1 07:15 Hermann Ashley MD is Attending Physician. pm1 07:20 Arm band placed on. em 07:20 Patient has correct armband on for positive identification. Placed in gown. Bed in low em position. Call light in reach. Side rails up X2. Adult w/ patient. Pulse ox on. NIBP on. 07:38 Triage completed. iw 07:46 XRAY Chest (1 view) In Process Unspecified. EDMS 07:50 Initial lab(s) drawn, by me, sent to lab. Inserted saline lock: 22 gauge in right em antecubital area, using aseptic technique. Blood collected. 08:15 EKG done, by ED staff, reviewed by Logan Mckinnon NP. jb1 09:02 CT completed. Patient tolerated procedure well. Patient moved back from CT. mw3 09:05 CT Chest For PE Angio In Process Unspecified. EDMS 10:02 Marisela Gould MD is Hospitalizing Provider. pm1 12:25 initiated a transfer with [facility] from the [facility]. eb 12:45 connected the cardiovascular surgeon concrete mixing plant laborer for [facility] with Logan HARRIS for patient transfer consultation. 12:55 Extrem Venous W Compression Juanito US In Process Unspecified. EDMS 15:06 administrative approval given by Shawanda Deleon/ patient has been accepted to [facility] 6S2 Bed16/ Dr. Glass has accepted the patient in transfer/ report to be called to [phone]. 16:09 No provider procedures requiring assistance completed. Patient transferred, IV remains em in place. Administered Medications: 08:37 Drug: NS 0.9% 500 ml Volume: 500 ml; Route: IV; Rate: 1 bolus; Site: right antecubital; ph 09:30 Follow up: IV Status: Completed infusion; IV Intake: 500ml em 09:30 Drug: Aspirin 325 mg Route: PO; em 10:09 Follow up: Response: No adverse reaction em 09:31 Drug: Lovenox 1 mg/kg Route: Sub-Q; Site: right lower abdomen; em 10:09 Follow up: Response: No adverse reaction em 12:30 Drug: fentaNYL (PF) 25 mcg Route: IVP; Site: right antecubital; iw 13:30 Follow up: Response: No adverse reaction; Pain is decreased em Intake: 09:30 IV: 500ml; Total: 500ml. em Outcome: 10:03 Decision to Hospitalize by Provider. pm1 12:24 ER care complete, transfer ordered by . pm1 16:09 Transferred by ground EMS to [facility], Transfer form completed. em X-rays sent w/ patient. 16:09 Condition: stable 16:09 Instructed on the need for transfer, Demonstrated understanding of instructions. 16:09 Patient left the ED. em Signatures: Dispatcher [employer] Valeriy Jacobsen jb1 Jimena Hilario mr Markie, Cullen, SWAGING MACHINE OPERATOR SWAGING MACHINE OPERATOR em Helena Saxena, JOSE RN iw Aimee Richardson RN RN Logan Sams, CAR[employer]AMP SERVICES MANAGER [employer] R[employer] SERVICES MANAGER pm1 Marina Sharif Michelle mw3 Corrections: (The following items were deleted from the chart) 15:59 11:46 BP 95 / 59; Pulse 77bpm; Resp 20bpm; Pulse Ox 100% RA; Pain 9/10; em em
--- NOTE | 2019-07-09 10:05 | EDPHYS ---
Physician Documentation [facility] Name: Charly Olmedo Age: 63 yrs Sex: Male : 1955 Arrival Date: 07/09/2019 Time: 07:11 Bed 20 Private MD: ED Physician Hermann Ashley HPI: 07/09 09:20 This 63 yrs old Male presents to ER via Wheelchair with complaints of pm1 Bilateral Leg Swelling. 09:20 The patient presents with swelling. The complaints affect the right leg and left leg. pm1 Context: The problem was sustained at home, resulted from an unknown cause, the patient can fully bear weight, the patient is able to ambulate. Onset: The symptoms/episode began/occurred last night. Modifying factors: The symptoms are alleviated by nothing. the symptoms are aggravated by nothing. Associated signs and symptoms: Pertinent positives: Chest pain and shortness of breath that is worse with onset of swelling to legs last night. Treatment prior to arrival includes: prescription medications, morphine pill and fentanyl patch. Severity of symptoms: in the emergency department the symptoms are actually worse. Historical: - Allergies: 07:20 Corticosteroids (Glucocorticoids); em - Home Meds: 07:20 Fentanyl Patch Topical [Active]; Hydrocodone-Acetaminophen Oral [Active]; Iron CR Oral em [Active]; Vitamin B-12 Oral [Active]; - PMHx: 07:20 GERD; Lung CA; current chemo; em - PSHx: 07:20 None; em - Immunization history:: Adult Immunizations not up to date. - Social history:: Smoking status: Patient/guardian denies using tobacco, but has a distant history of tobacco abuse. - Ebola Screening: : Patient negative for fever greater than or equal to 101.5 degrees Fahrenheit, and additional compatible Ebola Virus Disease symptoms Patient denies exposure to infectious person Patient denies travel to an Ebola-affected area in the 21 days before illness onset No symptoms or risks identified at this time. ROS: 09:20 Eyes: Negative for injury, pain, redness, and discharge. pm1 09:20 ENT: Negative for injury, pain, and discharge, Neck: Negative for injury, pain, and swelling. 09:20 Abdomen/GI: Negative for abdominal pain, nausea, vomiting, diarrhea, and constipation. 09:20 Back: Negative for injury and pain, : Negative for injury, bleeding, discharge, and swelling, MS/Extremity: Negative for injury and deformity, Skin: Negative for injury, rash, and discoloration. 09:20 Neuro: Negative for headache, weakness, numbness, tingling, and seizure. 09:20 Constitutional: Positive for subjective fever. 09:20 Cardiovascular: Positive for chest pain, edema, Negative for orthopnea, palpitations. 09:20 Respiratory: Positive for cough, shortness of breath. Exam: 09:20 Head/Face: Normocephalic, atraumatic. Eyes: Pupils equal round and reactive to light, pm1 extra-ocular motions intact. Lids and lashes normal. Conjunctiva and sclera are non-icteric and not injected. Cornea within normal limits. Periorbital areas with no swelling, redness, or edema. 09:20 ENT: Nares patent. No nasal discharge, no septal abnormalities noted. Tympanic membranes are normal and external auditory canals are clear. Oropharynx with no redness, swelling, or masses, exudates, or evidence of obstruction, uvula midline. Mucous membranes moist. Neck: Trachea midline, no thyromegaly or masses palpated, and no cervical lymphadenopathy. Supple, full range of motion without nuchal rigidity, or vertebral point tenderness. No Meningismus. Chest/axilla: Normal chest wall appearance and motion. Nontender with no deformity. No lesions are appreciated. 09:20 Abdomen/GI: Soft, non-tender, with normal bowel sounds. No distension or tympany. No guarding or rebound. No evidence of tenderness throughout. Back: No spinal tenderness. No costovertebral tenderness. Full range of motion. Skin: Warm, dry with normal turgor. Normal color with no rashes, no lesions, and no evidence of cellulitis. MS/ Extremity: Pulses equal, no cyanosis. Neurovascular intact. Full, normal range of motion. 09:20 Constitutional: The patient appears in no acute distress, alert, awake, comfortable, non-toxic, emaciated. 09:20 Cardiovascular: Rate: normal, Rhythm: regular, Pulses: no pulse deficits are appreciated, Heart sounds: normal, normal S1and S2, Edema: 2+ edema to level of left midcalf, left ankle, right midcalf and right ankle. 09:20 Respiratory: the patient does not display signs of respiratory distress, Breath sounds: decreased breath sounds, are heard in the left posterior upper lobe and left posterior lower lobe. 09:20 Neuro: Orientation: is normal, Mentation: is normal, Motor: is normal, moves all fours, Sensation: is normal, no obvious gross deficits. Vital Signs: 07:20 BP 98 / 83; Pulse 81; Resp 20; Temp 98.2(O); Pulse Ox 99% on R/A; Weight 45.36 kg (R); em Height 5 ft. 6 in. (167.64 cm); Pain 9/10; 08:04 BP 100 / 63; Pulse 74; Resp 14; Pulse Ox 100% on 2 lpm NC; em 10:08 BP 103 / 68; Pulse 86; Resp 22; Pulse Ox 100% on 2 lpm NC; em 11:46 BP 95 / 59; Pulse 77; Resp 20; Pulse Ox 100% on 2 lpm NC; Pain 9/10; em 12:30 BP 106 / 68; Pulse 74; Resp 22; Pulse Ox 99% on 2 lpm NC; Pain 7/10; em 13:30 BP 112 / 59; Pulse 74; Resp 18; Pulse Ox 100% on 2 lpm NC; em 14:30 BP 113 / 74; Pulse 79; Resp 20; Pulse Ox 100% on 2 lpm NC; em 15:30 BP 116 / 71; Pulse 83; Resp 20; Pulse Ox 100% on 2 lpm NC; em 07:20 Body Mass Index 16.14 (45.36 kg, 167.64 cm) em MDM: 07:16 Patient medically screened. pm1 10:01 Data reviewed: vital signs. Data interpreted: Pulse oximetry: on room air is 100 %. pm1 Interpretation: normal. Counseling: I had a detailed discussion with the patient and/or guardian regarding: the historical points, exam findings, and any diagnostic results supporting the discharge/admit diagnosis, lab results, radiology results, the need for further work-up and treatment in the hospital. 10:37 Physician consultation: Marisela Gould MD was called at 10:37, was contacted at 10:37, pm1 regarding admission, patient's condition, and will see patient. 12:05 Physician consultation: Marisela Gould MD was contacted at 12:05, regarding patient's pm1 condition, after a discussion of the case, a recommendation for transfer for higher level of care is made, Impression: no PE present but encasement of left pulmonary artery causing PE effect. Transfer for CV services for possible stenting of pulmonary artery. 12:20 Physician consultation: Art Downing MD was called at 12:10, was contacted at 12:20, pm1 regarding consult, patient's condition, CT Chest from June 07, 2019 occlusion to left pulmonary artery present but there appears to be vascularity likley from some collateral flow. Today's CT does not show any vascularity present. 12:24 Counseling: I had a detailed discussion with the patient and/or guardian regarding: the pm1 historical points, exam findings, and any diagnostic results supporting the discharge/admit diagnosis, radiology results, the need to transfer to another facility, [facility] does not immediately have the required specialist. 12:50 Physician consultation: , CV Surgeon Madi regarding consult, patient's condition, and pm1 will see patient Will consult on patient. Admit to hospitalist. 14:28 Physician consultation: , ICU Farmer [employer] Quan was contacted at 14:29, regarding pm1 regarding transfer, patient's condition, and will see patient. 07/09 07:27 Order name: Basic Metabolic Panel; Complete Time: 08:27 pm1 07/09 07:27 Order name: CBC with Diff; Complete Time: 10:23 pm1 07/09 07:27 Order name: LFT's; Complete Time: 08:27 pm1 07/09 07:27 Order name: Magnesium; Complete Time: 08:27 pm1 07/09 07:27 Order name: NT PRO-BNP; Complete Time: 08:27 pm1 07/09 07:27 Order name: PT-INR; Complete Time: 08:27 pm1 12 07:26 Order name: Extrem Venous W Compression Juanito US; Complete Time: 13:12 pm1 07/09 07:27 Order name: Troponin (emerg Dept Use Only); Complete Time: 08:27 pm1 07/09 07:27 Order name: XRAY Chest (1 view); Complete Time: 09:56 pm1 07/09 08:40 Order name: Procalcitonin; Complete Time: 10:17 pm1 07/09 08:40 Order name: Lactate; Complete Time: 10:04 pm1 07/09 08:40 Order name: Blood Culture Adult (2) pm1 07/09 08:41 Order name: Flu; Complete Time: 10:17 pm1 07/09 10:22 Order name: CBC Smear Scan; Complete Time: 10:23 EDMS 07/09 07:27 Order name: EKG; Complete Time: 07:28 pm1 07/09 07:27 Order name: Cardiac monitoring; Complete Time: 08:04 pm1 07/09 07:27 Order name: EKG - Nurse/Tech; Complete Time: 08:04 pm1 07/09 07:27 Order name: IV Saline Lock; Complete Time: 08:04 pm1 07/09 07:27 Order name: Labs collected and sent; Complete Time: 08:03 pm1 07/09 07:27 Order name: O2 Per Protocol; Complete Time: 08:03 pm1 07/09 07:27 Order name: O2 Sat Monitoring; Complete Time: 08:03 pm1 07/09 08:28 Order name: CT Chest For PE Angio; Complete Time: 09:56 pm1 07/09 11:55 Order name: Diet Regular; Complete Time: 11:55 em Administered Medications: 08:37 Drug: NS 0.9% 500 ml Volume: 500 ml; Route: IV; Rate: 1 bolus; Site: right antecubital; ph 09:30 Follow up: IV Status: Completed infusion; IV Intake: 500ml em 09:30 Drug: Aspirin 325 mg Route: PO; em 10:09 Follow up: Response: No adverse reaction em 09:31 Drug: Lovenox 1 mg/kg Route: Sub-Q; Site: right lower abdomen; em 10:09 Follow up: Response: No adverse reaction em 12:30 Drug: fentaNYL (PF) 25 mcg Route: IVP; Site: right antecubital; iw 13:30 Follow up: Response: No adverse reaction; Pain is decreased em Disposition: 07/10 07:15 Co-signature as Attending Physician, Hermann Ashley MD I agree with the assessment and kdr plan of care. Disposition: 07/09/19 12:24 Transfer ordered to [facility]. 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 - Reason for transfer: Higher level of care. - Accepting physician is MD. - Condition is Stable. - Problem is new. - Symptoms have improved. Signatures: Dispatcher [employer] Hermann Dey MD MD [facility] Cullen Aden, FLY WINDER FLY WINDER em Helena Saxena, RN RN Aimee Richardson RN RN Logan Mckinnon, DECK OFFICER DECK OFFICER pm1 Corrections: (The following items were deleted from the chart) 07/09 12:20 10:03 Hospitalization Ordered by Marisela Gould MD for Observation. Preliminary pm1 diagnosis is Chest pain, unspecified; Shortness of breath; Elevated troponin. Bed requested for Telemetry/MedSurg (observation). Status is Observation. Condition is Stable. Problem is new. Symptoms have improved. UTI on Admission? No. pm1 16:09 12:24 07/09/2019 12:24 Transfer ordered to [facility]. Diagnosis is em Left pulmonary artery occlusion from lung massAcute embolism and thrombosis of unspecified deep veins of left lower extremity; Chest pain, unspecified; Shortness of breath; Malignant neoplasm of upper lobe, left bronchus or lung. Reason for transfer: Higher level of care. Accepting physician is MD. Condition is Stable. Problem is new. Symptoms have improved. pm1
[2019-07-09 10:21] LABS: Anisocytosis 1+; Blood Morphology Comment NOTED (NOT SEEN); Platelet Estimate ADEQ; Poikilocytosis 1+; Urine White Blood Cell Casts OK
--- NOTE | 2019-07-09 13:08 | RAD REPORT ---
EXAM DESCRIPTION: USExtrem Venous W Compress Bil07/09/2019 12:55 pm CLINICAL HISTORY: Bilateral leg swelling COMPARISON: none FINDINGS: The right common femoral, superficial femoral, popliteal and posterior tibial veins are c ompressible and demonstrate augmentation. Doppler demonstrates good flow Echogenic material consistent with acute thrombus is present within the left common femoral and left superficial femoral veins IMPRESSION: Acute thrombus within the left common femoral and left superficial femoral veins
[2019-07-09 17:58] VITALS: TEMP 98.2
[2019-07-09 18:06] VITALS: O2SAT 100
[2019-07-09 18:09] VITALS: BP 116/71
--- NOTE | 2019-07-10 06:05 | EKG ---
Test Date: 2019-07-09 Test Time: 07:48:29 Locomotive Inspector: COURTNEY MEASUREMENT RESULTS: Intervals: Rate: 77 [place]: 128 QRSD: 110 QT: 388 QTc: 439 [place]: P: 52 [place]: 128 QRS: 25 T: 256 INTERPRETIVE STATEMENTS: Normal sinus rhythm Possible Inferior infarct, age undetermined ST & T wave abnormality, consider anterior ischemia Abnormal ECG Compared to ECG 05/12/2019 11:23:30 Myocardial infarct finding now present Short [place] interval no longer present ST (T wave) deviation still present Possible ischemia still present Electronically Signed On 07-10-19 06:05:21 PLANT SPRAYER by Bebo Reddy
== END 2019-07-09 16:09 | disposition short-term general hospital (02) ==
LOC: ER 07:08
DX: I26.99 Other pulmonary embolism without acute cor pulmonale (principal); I82.402 Acute embolism and thrombosis of unspecified deep veins of left lower extremity; C34.12 Malignant neoplasm of upper lobe, left bronchus or lung; R07.9 Chest pain, unspecified; R06.02 Shortness of breath; Z88.8 Allergy status to other drugs, medicaments and biological substances
CPT/HCPCS: 96361; 93005; 87040 ×2; 85025; 80048; 36415; 83735; 85610; 80076; 83605; 84484; 84145; 83880; 87804 ×2; 71275; 71045; 93970; 96372; 96374; 99285; Q9967; J3010; J1650; J7040